=== PATIENT | female | born 1985 | race Caucasian/White ===

== ENCOUNTER 2017-01-27 16:58 | Emergency (ER) | payer SELFPAY ==
[~2017-01-27] VITALS: Ht 172.7 cm; Wt 140.0 kg
[2017-01-27 17:14] VITALS: BP 141/96; PULSE 80; RESP 16; TEMP 99.6; O2SAT 97
[2017-01-27] MEDS ORDERED: CYMB60CA PO (17:59)
[2017-01-27] MEDS ORDERED: LISI10TA3 PO (17:59)
[2017-01-27] MEDS ORDERED: SODIUM CHLOR 0.9% 1000 ML INJ 1,000 ML IV ONE (18:00)
[2017-01-27] MEDS ORDERED: KETOROLAC TROMETHAMINE 30 MG/ML (IVP) VIAL IV PUSH ONE (18:00)
[2017-01-27] MEDS ORDERED: ONDANSETRON HCL 4 MG/2 ML VIAL IV PUSH ONE (18:00)
[2017-01-27] MEDS ORDERED: MORPHINE SULFATE 4 MG/ML INJ IV PUSH ONE ×2 (18:00→19:45)
--- NOTE | 2017-01-27 18:01 | PD ---
HPI Chief Complaint: Abdominal Pain Time Seen by Provider: 17:42 Travel History International Travel<30 days: No Contact w/Intl Traveler<30days: No Traveled to known affect area: No History of Present Illness HPI Patient is a 31-year-old female who comes in complaining of left-sided pelvic pain. She says it's been going on for about the past 4 days, but got much worse today. She says she started her menstrual period on , and she has had cramping, but this is much worse than her normal cramps. She says she feels like something is twisting inside of her. She does say that she had chlamydia almost a year ago, but she was treated. She has not noticed any discharge since then. She has had some nausea, but no vomiting. She has felt feverish, but has not taken her temperature. Been taking ibuprofen for pain without much relief. PFSH Past Medical History Hypertension: Yes Kidney Stones: Yes Tetanus Vaccination: < 5 Years Influenza Vaccination: No ?: Not LMP: NOW Past Surgical History Abdominal Surgery: Yes (Umb. hernia w/ mesh) Genitourinary Surgery: Yes (Lithotripsy, cystoscopy w/ stent (multiple)) Social History Alcohol Use: Yes (Rare) Tobacco Use: Yes (1 PPD) Substance Use: No Allergies-Medications (Allergen,Severity, Reaction): Coded Allergies: Sulfa (Sulfonamide Antibiotics) (Verified Allergy, Intermediate, HIVES, ) Reported Meds & Prescriptions Reported Meds & Active Scripts Active Lortab (Hydrocodone-Acetaminophen) 5-325 Mg Tab 1 Tab PO Q6H PRN Flagyl (Metronidazole) 500 Mg Tab 500 Mg PO TID 7 Days Reported Lisinopril 10 Mg Tab 10 Mg PO DAILY Cymbalta DR (Duloxetine HCl) 60 Mg Capdr 60 Mg PO DAILY Review of Systems Except as stated in HPI: all other systems reviewed are Neg General / Constitutional: No: Fever, Chills HENT: No: Headaches, Lightheadedness Cardiovascular: No: Chest Pain or Discomfort Respiratory: No: Shortness of Breath Gastrointestinal: Positive: Nausea, Abdominal Pain, No: Vomiting Genitourinary: Positive: Vaginal Bleeding, No: Dysuria Musculoskeletal: No: Edema, Pain Skin: No Rash, No Change in Pigmentation Neurologic: No: Weakness, Dizziness Physical Exam Narrative GENERAL: Awake and alert, in no acute distress. SKIN: Focused skin assessment warm/dry. HEAD: Atraumatic. Normocephalic. EYES: Pupils equal and round. No scleral icterus. ENT: No nasal bleeding or discharge. Mucous membranes pink and moist. NECK: Trachea midline. No JVD. CARDIOVASCULAR: Regular rate and rhythm. No murmur appreciated. RESPIRATORY: No accessory muscle use. Clear to auscultation. Breath sounds equal bilaterally. GASTROINTESTINAL: Abdomen soft, nondistended. Tender to palpation in the left pelvic area. No rebound or guarding. : Exam performed in the presence of a female nurse. Greyish discharge from the os. No cervical lesions, no CMT. MUSCULOSKELETAL: No obvious deformities. No clubbing. No cyanosis. No edema. NEUROLOGICAL: Awake and alert. No obvious cranial nerve deficits. Motor grossly within normal limits. Normal speech. PSYCHIATRIC: Appropriate mood and affect; insight and judgment normal. Data Data Last Documented VS Vital Signs Date Time Temp Pulse Resp B/P (MAP) Pulse Ox O2 Delivery O2 Flow Rate FiO2 01/27/17 21:48 84 16 138/70 (92) 99 01/27/17 19:49 Room Air 01/27/17 17:14 99.6 Orders Orders Iv Access Insert/Monitor (01/27/17 17:48) Complete Blood Count With Diff (01/27/17 17:48) Comprehensive Metabolic Panel (01/27/17 17:48) Urinalysis - C+S If Indicated (01/27/17 17:48) Ed Urine Pregnancytest Poc (01/27/17 17:48) Sodium Chlor 0.9% 1000 Ml Inj (Ns 1000 M (01/27/17 18:00) Morphine Inj (Morphine Inj) (01/27/17 18:00) Ondansetron Inj (Zofran Inj) (01/27/17 18:00) Ketorolac Inj (Toradol Inj) (01/27/17 18:00) Wet Prep Profile (01/27/17 18:43) Gc And Chlamydia Pcr (01/27/17 18:43) Us Pelvis Comp W Transvaginal (01/27/17 ) Morphine Inj (Morphine Inj) (01/27/17 19:45) Ct Abd/Pel W Iv Contrast(Rout) (01/27/17 ) Iohexol 350 Inj (Omnipaque 350 Inj) (01/27/17 20:57) Labs Laboratory Tests Test 01/27/17 18:00 01/27/17 18:50 White Blood Count 11.7 TH/MM3 Red Blood Count 4.69 MIL/MM3 Hemoglobin 13.0 GM/DL Hematocrit 39.0 % Mean Corpuscular Volume 83.3 FL Mean Corpuscular Hemoglobin 27.8 PG Mean Corpuscular Hemoglobin Concent 33.4 % Red Cell Distribution Width 12.6 % Platelet Count 352 TH/MM3 Mean Platelet Volume 8.5 FL Neutrophils (%) (Auto) 65.4 % Lymphocytes (%) (Auto) 22.0 % Monocytes (%) (Auto) 5.5 % Eosinophils (%) (Auto) 3.6 % Basophils (%) (Auto) 3.5 % Neutrophils # (Auto) 7.7 TH/MM3 Lymphocytes # (Auto) 2.6 TH/MM3 Monocytes # (Auto) 0.6 TH/MM3 Eosinophils # (Auto) 0.4 TH/MM3 Basophils # (Auto) 0.4 TH/MM3 CBC Comment DIFF FINAL Differential Comment Urine Collection Type CLEAN CATCH Urine Color YELLOW Urine Turbidity CLOUDY Urine pH 7.0 Urine Specific [place] 1.019 Urine Protein NEG mg/dL Urine Glucose (UA) NEG mg/dL Urine Ketones NEG mg/dL Urine Occult Blood NEG Urine Nitrite NEG Urine Bilirubin NEG Urine Leukocyte Esterase NEG Urine WBC 0-2 /hpf Urine Squamous Epithelial Cells 0-2 /hpf Urine Amorphous Sediment MOD Microscopic Urinalysis Comment CULT NOT INDICATED Blood Urea Nitrogen 13 MG/DL Creatinine 1.10 MG/DL Random Glucose 85 MG/DL Total Protein 7.4 GM/DL Albumin 3.7 GM/DL Calcium Level 8.8 MG/DL Alkaline Phosphatase 93 U/L Aspartate Amino Transf (AST/SGOT) 14 U/L Alanine Aminotransferase (ALT/SGPT) 27 U/L Total Bilirubin 0.4 MG/DL Sodium Level 140 MEQ/L Potassium Level 3.8 MEQ/L Chloride Level 108 MEQ/L Carbon Dioxide Level 26.3 MEQ/L Anion Gap 6 MEQ/L Estimat Glomerular Filtration Rate 58 ML/MIN Clue Cells (Wet Prep) PRESENT Vaginal Trichomonas (Wet Prep) NONE SEEN Vaginal Yeast (Wet Prep) NONE SEEN MDM Medical Decision Making Medical Screen Exam Complete: Yes Emergency Medical Condition: Yes Medical Record Reviewed: Yes Differential Diagnosis BV versus GC and chlamydia versus ovarian cyst versus ovarian torsion versus colitis Narrative Course Patient is a 31-year-old female comes in complaining of left-sided abdominal pain. Exam shows tenderness of left pelvic area. IV established, labs sent. Labs show no acute abnormalities. Wet prep positive for clue cells suggesting bacterial vaginosis. Ultrasound of the pelvis shows trace free fluid, no other abnormalities. CT of the abdomen and pelvis shows no acute abnormalities or reasons for the pain. She was given IV fluids, Zofran and morphine. Given a second dose of morphine after the ultrasound. She is feeling better. She'll be discharged with a prescription for Flagyl as well as pain medication. She is advised follow-up with [facility]. Advised to return as needed for any worsening symptoms. She is advised to avoid alcohol taking the antibiotic. Diagnosis Primary Impression: Abdominal pain Qualified Codes: R10.32 - Left lower quadrant pain Additional Impression: Bacterial vaginosis Patient Instructions: Abdominal Pain (ED), Bacterial Vaginosis (ED), General Instructions Additional Instructions: Follow-up with gynecology. Take all of your antibiotic. He can take ibuprofen for pain. Take a pain pill as needed for severe pain. Return to the ED as needed for any worsening symptoms. Scripts Hydrocodone-Acetaminophen (Lortab) 5-325 Mg Tab 1 TAB PO Q6H Y for PAIN, #6 TAB 0 Refills Prov: Manuela Cassidy MD 01/27/17 Metronidazole (Flagyl) 500 Mg Tab 500 MG PO TID for Infection for 7 Days, TAB 0 Refills Prov: Manuela Cassidy MD 01/27/17 Disposition: 01 DISCHARGE HOME Condition: Stable Manuela Cassidy MD Jan 27, 2017 18:01
[2017-01-27 18:15] LABS: AUTOMATED NEUTROPHIL # 7.7 TH/MM3 (1.8-7.7); BASOPHIL # 0.4 TH/MM3 (0-0.2); BASOPHIL % 3.5 % (0.0-2.0); EOSINOPHIL # 0.4 TH/MM3 (0-0.4); EOSINOPHIL % 3.6 % (0.0-4.0); HEMO FLAGS DIFF FINAL; LYMPHOCYTE # 2.6 TH/MM3 (1.0-4.8); MEAN CELL VOLUME 83.3 FL (80.0-100.0); MEAN CORPUSCULAR HEMOGLOBIN 27.8 PG (27.0-34.0); MEAN CORPUSCULAR HGB CONC 33.4 % (32.0-36.0); MONO % 5.5 % (0.0-8.0); NEUT % 65.4 % (16.0-70.0); PLATELET COUNT 352 TH/MM3 (150-450); RED BLOOD COUNT 4.69 MIL/MM3 (4.00-5.30); RED CELL DISTRIBUTION WIDTH 12.6 % (11.6-17.2); WHITE BLOOD COUNT 11.7 TH/MM3 (4.0-11.0)
[2017-01-27 18:18] LABS: BLOOD, URINE NEG (NEG); GLUCOSE,URINE NEG (NEG); KETONE, URINE NEG (NEG); NITRITE,URINE NEG (NEG)
[2017-01-27 18:26] LABS: CHLORIDE 108 MEQ/L (98-107); POTASSIUM 3.8 MEQ/L (3.5-5.1); SODIUM (NA) 140 MEQ/L (136-145)
[2017-01-27 18:30] LABS: ANION GAP 6 MEQ/L (5-15); BICARBONATE 26.3 MEQ/L (21.0-32.0); BLOOD UREA NITROGEN 13 MG/DL (7-18)
[2017-01-27 18:33] LABS: ALT (GPT) 27 U/L (10-53); AST (GOT) 14 U/L (15-37); GLOMERULAR FILTRATION RATE 58 ML/MIN (>89)
[2017-01-27 18:35] LABS: TOTAL BILIRUBIN ADULT 0.4 MG/DL (0.2-1.0)
[2017-01-27 18:36] LABS: ALKALINE PHOSPHATASE 93 U/L (45-117); METHOD OF COLLECTION CLEAN CATCH
[2017-01-27 18:37] LABS: COMMENT (UR) CULT NOT INDICATED; CULTURE IF INDICATED CULT NOT INDICATED; SQUAMOUS EPITHELIAL CELL URINE 0-2 /hpf (0-5); URINE COLOR YELLOW (YELLW/STRAW); WBC, URINE 0-2 /hpf (0-5)
[2017-01-27 19:49] VITALS: BP 133/69; PULSE 78; RESP 18; O2SAT 99
--- NOTE | 2017-01-27 20:15 | RADRPT ---
EXAM DATE/TIME: 01/27/2017 19:00 [facility] COMPARISON: No previous studies available for comparison. INDICATIONS : Pelvic pain. MEDICAL HISTORY : Hypertension. Kidney stones. SURGICAL HISTORY : Umbilical hernia with mesh. Lithotripsy. Cystoscopy with stent. ENCOUNTER: Initial ACUITY: 3 days PAIN SCORE: 6/10 LOCATION: Bilateral pelvis MEASUREMENTS: UTERUS: 7.1 x 3.9 x 3.6 cm ENDOMETRIAL STRIPE: 4 mm RIGHT OVARY: 2.3 x 1.5 x 1.2 cm LEFT OVARY: 3.3 x 1.8 x 2.2 cm FINDINGS: UTERUS: The myometrium has homogeneous echotexture without mass. There is a mildly complex nabothian cyst. RIGHT OVARY: Ovary contains no mass or significant cystic lesion. Follicles are present. LEFT OVARY: Ovary contains no mass or significant cystic lesion. Follicles are present. MISCELLANEOUS: There is trace simple free fluid in the posterior cul-de-sac. CONCLUSION: 1. Normal pelvis ultrasound. No abnormality is identified to explain the pain. 2. Trace simple free fluid in the posterior cul-de-sac consistent with physiologic free fluid. Royce Melendez MD on January 27, 2017 at 20:11 Board Certified Radiologist. This report was verified electronically.
[2017-01-27] MEDS ORDERED: IOHEXOL 350 MG/ML 10 ML VIAL (for RAD DIAG) IV PUSH ONE (20:57)
--- NOTE | 2017-01-27 21:20 | RADRPT ---
EXAM DATE/TIME: 01/27/2017 20:46 [facility] COMPARISON: No previous studies available for comparison. INDICATIONS : Left pelvic pain for four days. IV CONTRAST: 75 cc Omnipaque 350 (iohexol) IV ORAL CONTRAST: No oral contrast ingested. RADIATION DOSE: 22.38 CTDIvol (mGy) MEDICAL HISTORY : Hypertension. SURGICAL HISTORY : Umbilical hernia repair. ENCOUNTER: Initial ACUITY: 4 - 6 days PAIN SCALE: 5/10 LOCATION: Left lower quadrant TECHNIQUE: Volumetric scanning of the abdomen and pelvis was performed. Using automated exposure control and ad justment of the mA and/or kV according to patient size, radiation dose was kept as low as reasonably achievable to obtain optimal diagnostic quality images. DICOM format image data is available electro nically for review and comparison. FINDINGS: LOWER LUNGS: The visualized lower lungs are clear. LIVER: Liver density is suggestive of steatosis. The liver measures 24.2 cm in length. There has been prior cholecystectomy with clips in the gallbladder fossa. There is no dilation of the biliary tree. SPLEEN: Measures 13.6 cm. No focal lesion. PANCREAS: Within normal limits. KIDNEYS: Normal in size and shape. There is no mass, stone or hydronephrosis. ADRENAL GLANDS: Within normal limits. VASCULAR: There is no aortic aneurysm. BOWEL/MESENTERY: The stomach, small bowel, and colon demonstrate no acute abnormality. There is no free intraperitone al air. There is trace free fluid in the posterior cul-de-sac. The appendix is normal. ABDOMINAL WALL: Within normal limits. RETROPERITONEUM: There is no lymphadenopathy. BLADDER: No wall thickening or mass. REPRODUCTIVE: Within normal limits. INGUINAL: There is no lymphadenopathy or hernia. MUSCULOSKELETAL: No acute abnormality. CONCLUSION: 1. No acute finding is identified to explain the clinical symptoms. 2. Trace free fluid in the posterior cul-de-sac, presumably physiologic. 3. Hepatomegaly with steatosis. Royce Melendez MD on January 27, 2017 at 21:15 Board Certified Radiologist. This report was verified electronically.
[2017-01-27] MEDS ORDERED: METR-1 PO (21:34)
[2017-01-27] MEDS ORDERED: HYDR-3533 PO (21:34)
[2017-01-27 21:48] VITALS: BP 138/70
[2017-01-27 22:59] LABS: CHLAMYDIA PCR NOT DETECTED (NOT DETECT); NEISSERIA PCR NOT DETECTED (NOT DETECT)
== END 2017-01-27 21:53 | disposition home or self-care (01) ==
LOC: PHED 16:58
DX: N76.0 Acute vaginitis (principal); R11.0 Nausea; I10 Essential (primary) hypertension; F17.200 Nicotine dependence, unspecified, uncomplicated
CPT/HCPCS: 74177; 76830; 76856; 80053; 81001; 84703; 85025; 87210; 87491; 87591; 96361; 96374; 96375; 96376; 99285; J1885; J2270; J2405; J7030; Q9967

== ENCOUNTER 2017-04-22 01:58 | Emergency (ER) | payer SELFPAY ==
[~2017-04-22] VITALS: Ht 172.7 cm; Wt 142.8 kg
[~2017-04-22 01:58] MED LIST: CYMB60CA PO; HYDR-3533 PO; LISI10TA3 PO; METR-1 PO
[2017-04-22 02:03] VITALS: BP 152/95; PULSE 94; RESP 22; TEMP 98.4; O2SAT 100
[2017-04-22] MEDS ORDERED: IBUP200C PO (02:33)
[2017-04-22 02:55] LABS: BLOOD, URINE NEG (NEG); GLUCOSE,URINE NEG (NEG); KETONE, URINE TRACE mg/dL (NEG); NITRITE,URINE NEG (NEG)
[2017-04-22 03:17] LABS: URINE COLOR YELLOW (YELLW/STRAW)
[2017-04-22 03:18] LABS: MUCUS URINE MOD /lpf (OCC)
[2017-04-22 03:19] LABS: BACTERIA, URINE MOD /hpf; CALCIUM OXALATE CRYSTALS,URINE FEW /hpf; RBC, URINE 0-3 /hpf (0-3)
[2017-04-22 03:21] LABS: COMMENT (UR) CULTURE INDICATED; CULTURE IF INDICATED CULTURE INDICATED
[2017-04-22] MEDS ORDERED: LEVOFLOXACIN 750 MG TAB PO ONE (03:45)
[2017-04-22] MEDS ORDERED: KETOROLAC TROMETHAMINE 60 MG/2 ML (IM) VIAL IM ONE (03:45)
--- NOTE | 2017-04-22 03:45 | PD ---
HPI Chief Complaint: Flank/Kidney Pain Time Seen by Provider: 02:24 Travel History International Travel<30 days: No Contact w/Intl Traveler<30days: No Traveled to known affect area: No History of Present Illness HPI Patient with the last 2 days has had bilateral back pain right side is worse than left. There is some radiation around the right lateral abdomen. She's having dysuria and pressure when she urinates as well . Patient reports that she has had a history of stones when I ask her who did the stenting if she had to have stenting she said it was done at [facility] not here locally. Patient has allergies to sulfa cannot take Bactrim she has had UTIs in the past which she reports often involved her kidneys as well. UA is sent will evaluate urine for red cells patient does not appear toxic awake alert oriented 3 PFSH Past Medical History Anxiety: Yes Depression: Yes Hypertension: Yes Kidney Stones: Yes Medical other: Yes (DONIS'S PALSY: 2013) Musculoskeletal: Yes (LOW BACK PAIN) Tetanus Vaccination: < 5 Years ?: Unknown LMP: THREE WEEKS AGO : 0 Ovarian Cysts: Yes Past Surgical History Abdominal Surgery: Yes (Umb. hernia w/ mesh) Cholecystectomy: Yes (2014) Genitourinary Surgery: Yes (Lithotripsy, cystoscopy w/ stent (multiple)) Tonsillectomy: Yes (WITH ADENOIDS) Other Surgery: Yes (LEFT HAND 5TH DIGIT RECONSTRUCTION) Social History Alcohol Use: Yes (Rare) Tobacco Use: Yes (1 PPD) Substance Use: No Allergies-Medications (Allergen,Severity, Reaction): Coded Allergies: Sulfa (Sulfonamide Antibiotics) (Verified Allergy, Intermediate, HIVES, ) Reported Meds & Prescriptions Reported Meds & Active Scripts Active Ibuprofen 600 Mg Tab 600 Mg PO Q6H PRN Levaquin (Levofloxacin) 750 Mg Tablet 750 Mg PO DAILY Reported Ibuprofen 200 Mg Cap 600 Mg PO ONCE Lisinopril 10 Mg Tab 10 Mg PO DAILY Cymbalta DR (Duloxetine HCl) 60 Mg Capdr 60 Mg PO DAILY Physical Exam Narrative GENERAL: obese non toxic appearing no acute distress SKIN: Warm and dry. HEAD: Atraumatic. Normocephalic. EYES: Pupils equal and round. No scleral icterus. No injection or drainage. ENT: No nasal bleeding or discharge. Mucous membranes pink and moist. NECK: Trachea midline. No JVD. CARDIOVASCULAR: Regular rate and rhythm. RESPIRATORY: No accessory muscle use. Clear to auscultation. Breath sounds equal bilaterally. GASTROINTESTINAL: Abdomen soft, non-tender, nondistended. Hepatic and splenic margins not palpable. MUSCULOSKELETAL: Extremities without clubbing, cyanosis, or edema. No obvious deformities. FLANK PAIN bilateral NEUROLOGICAL: Awake and alert. No obvious cranial nerve deficits. Motor grossly within normal limits. Five out of 5 muscle strength in the arms and legs. Normal speech. PSYCHIATRIC: Appropriate mood and affect; insight and judgment normal. Data Data Last Documented VS Vital Signs Date Time Temp Pulse Resp B/P (MAP) Pulse Ox O2 Delivery O2 Flow Rate FiO2 04/22/17 06:24 04/22/17 06:24 98.3 82 16 98 04/22/17 04:28 Room Air Orders Orders Urinalysis - C+S If Indicated (04/22/17 02:43) Urine Culture (04/22/17 02:40) Ketorolac Inj (Toradol Inj) (04/22/17 03:45) Levofloxacin (Levaquin) (04/22/17 03:45) Ct Abd/Pel W/O Iv Contrast (04/22/17 ) Ed Urine Pregnancytest Poc (04/22/17 04:13) Tramadol (Ultram) (04/22/17 04:15) Ondansetron Odt (Zofran Odt) (04/22/17 04:45) Ed Discharge Order (04/22/17 06:26) Labs Laboratory Tests Test 04/22/17 02:40 Urine Color YELLOW Urine Turbidity SLIGHT Urine pH 6.0 Urine Specific [place] 1.031 Urine Protein NEG mg/dL Urine Glucose (UA) NEG mg/dL Urine Ketones TRACE mg/dL Urine Occult Blood NEG Urine Nitrite NEG Urine Bilirubin NEG Urine Leukocyte Esterase SMALL Urine RBC 0-3 /hpf Urine WBC 3-5 /hpf Urine Squamous Epithelial Cells 6-8 /hpf Urine Calcium Oxalate Crystals FEW /hpf Urine Bacteria MOD /hpf Urine Hyaline Casts 3-5 /lpf Urine Mucus MOD /lpf Microscopic Urinalysis Comment CULTURE INDICATED MDM Medical Decision Making Medical Screen Exam Complete: Yes Emergency Medical Condition: Yes Differential Diagnosis back pain vs flank pain renal colic vs myalgias NOS Narrative Course CT = no ureters stones no acute pathology . Diagnosis Primary Impression: UTI (urinary tract infection) Qualified Codes: N30.00 - Acute cystitis without hematuria Patient Instructions: General Instructions, Urinary Tract Infection in Women ( ED) Scripts Ibuprofen (Ibuprofen) 600 Mg Tab 600 MG PO Q6H Y for Pain/Inflammation, #30 TAB 0 Refills Prov: Bernabe Mitchell MD 04/22/17 Levofloxacin (Levaquin) 750 Mg Tablet 750 MG PO DAILY for Infection, #5 TAB 0 Refills Prov: Bernabe Mitchell MD 04/22/17 Disposition: 01 DISCHARGE HOME Condition: Good Bernabe Mitchell MD Apr 22, 2017 03:45
[2017-04-22] MEDS ORDERED: traMADol HCL 50 MG TAB PO ONE (04:15)
[2017-04-22 04:28] VITALS: BP 102/72; PULSE 69; RESP 16; O2SAT 98
[2017-04-22] MEDS ORDERED: ONDANSETRON ODT 4 MG TAB PO ONE (04:45)
--- NOTE | 2017-04-22 05:34 | RADRPT ---
EXAM DATE/TIME: 04/22/2017 04:59 [facility] COMPARISON: CT ABDOMEN & PELVIS W CONTRAST, January 27, 2017, 20:46. INDICATIONS : Lower abdominal pain. ORAL CONTRAST: No oral contrast ingested. RADIATION DOSE: 22.38 CTDIvol (mGy) MEDICAL HISTORY : Hypertension. SURGICAL HISTORY : Umbilical hernia repair. Cholecystectomy. ENCOUNTER: Initial ACUITY: 2 days PAIN SCALE: 8/10 LOCATION: Bilateral lower quadrant TECHNIQUE: Volumetric scanning of the abdomen and pelvis was performed. Using automated exposure control and ad justment of the mA and/or kV according to patient size, radiation dose was kept as low as reasonably achievable to obtain optimal diagnostic quality images. DICOM format image data is available electro nically for review and comparison. FINDINGS: LOWER LUNGS: The visualized lower lungs are clear. LIVER: Homogeneous density without lesion. There is no dilation of the biliary tree. Cholecystectomy clips. SPLEEN: Normal size without lesion. PANCREAS: Within normal limits. KIDNEYS: Normal in size and shape. There is no mass, or hydronephrosis. Multiple small calcifications without evidence of obstruction ADRENAL GLANDS: Within normal limits. VASCULAR: There is no aortic aneurysm. BOWEL/MESENTERY: The stomach, small bowel, and colon demonstrate no acute abnormality. There is no free intraperitone al air or fluid. ABDOMINAL WALL: Within normal limits. RETROPERITONEUM: There is no lymphadenopathy. BLADDER: No wall thickening or mass. REPRODUCTIVE: Within normal limits. INGUINAL: There is no lymphadenopathy or hernia. MUSCULOSKELETAL: Within normal limits for patient age. CONCLUSION: Normal examination. No etiology for abdominal pain is identified. Ranjit Sanchez MD on April 22, 2017 at 5:31 Board Certified Radiologist. This report was verified electronically.
[2017-04-22] MEDS ORDERED: LEVA750T9 PO (06:20)
[2017-04-22] MEDS ORDERED: IBUP-232 PO (06:22)
[2017-04-22 06:24] VITALS: BP 116/62; PULSE 82; RESP 16; TEMP 98.3; O2SAT 98
== END 2017-04-22 06:36 | disposition home or self-care (01) ==
LOC: PHED 01:58
DX: N30.00 Acute cystitis without hematuria (principal); B96.89 Other specified bacterial agents as the cause of diseases classified elsewhere; F17.200 Nicotine dependence, unspecified, uncomplicated; I10 Essential (primary) hypertension
CPT/HCPCS: 74176; 81001; 84703; 87086; 96372; 99285; J1885

== ENCOUNTER 2017-11-26 20:58 | Emergency (ER) | payer SELFPAY ==
[~2017-11-26 20:58] MED LIST changes: -HYDR-3533 PO; +IBUP-232 PO; +IBUP200C PO; +LEVA750T9 PO; -METR-1 PO
[2017-11-26 21:05] VITALS: BP 133/73; PULSE 97; RESP 20; TEMP 98.9; O2SAT 100
[2017-11-26] MEDS ORDERED: ONDANSETRON ODT 4 MG TAB PO ONE (21:30)
[2017-11-26] MEDS ORDERED: KETOROLAC TROMETHAMINE 30 MG/ML (IVP) VIAL IVP ONE (21:30)
--- NOTE | 2017-11-26 21:33 | PD ---
HPI Chief Complaint: Abdominal Pain Time Seen by Provider: 21:17 Travel History International Travel<30 days: No Contact w/Intl Traveler<30days: No Traveled to known affect area: No History of Present Illness HPI 32yo F with c/o left sided back pain radiating to left abdomen since yesterday. Said it feels like her kidney stone but she is also having nonbloody diarrhea. +Nausea. Abdominal pain is constant but waxes and wanes in intensity. No exacerbating or alleviating factors. Moderate severity. No dysuria but increased urinary frequency. PSH include cholecystectomy and umbilical hernia repair. PFSH Past Medical History Anxiety: Yes Depression: Yes Hypertension: Yes Kidney Stones: Yes Musculoskeletal: Yes (LOW BACK PAIN) ?: Not LMP: 2 WEEKS : 0 Ovarian Cysts: Yes Past Surgical History Abdominal Surgery: Yes (Umb. hernia w/ mesh) Cholecystectomy: Yes (2014) Genitourinary Surgery: Yes (Lithotripsy, cystoscopy w/ stent (multiple)) Tonsillectomy: Yes (WITH ADENOIDS) Other Surgery: Yes (LEFT HAND 5TH DIGIT RECONSTRUCTION) Social History Alcohol Use: Yes (Rare) Tobacco Use: Yes (1 PPD) Substance Use: No Allergies-Medications (Allergen,Severity, Reaction): Coded Allergies: Sulfa (Sulfonamide Antibiotics) (Verified Allergy, Intermediate, HIVES, ) Reported Meds & Prescriptions Reported Meds & Active Scripts Active Reported Lisinopril 10 Mg Tab 10 Mg PO DAILY Cymbalta DR (Duloxetine HCl) 60 Mg Capdr 60 Mg PO DAILY Review of Systems Except as stated in HPI: all other systems reviewed are Neg Physical Exam Narrative GENERAL: 32yo F in mild distress. SKIN: Focused skin assessment warm/dry. HEAD: Atraumatic. Normocephalic. EYES: Pupils equal and round. No scleral icterus. No injection or drainage. ENT: No nasal bleeding or discharge. Mucous membranes pink and moist. NECK: Trachea midline. No JVD. CARDIOVASCULAR: Regular rate and rhythm. No murmur appreciated. RESPIRATORY: No accessory muscle use. Clear to auscultation. Breath sounds equal bilaterally. GASTROINTESTINAL: Abdomen soft, obese abdomen. +TTP Left upper and left lower abdomen. No RLQ ttp. No rebound tenderness or guarding. BACK: No midline thoracic or lumbar ttp. +CVA tenderness on left. MUSCULOSKELETAL: No obvious deformities. No clubbing. No cyanosis. No edema. NEUROLOGICAL: Awake and alert. No obvious cranial nerve deficits. Motor grossly within normal limits. Normal speech. PSYCHIATRIC: Appropriate mood and affect; insight and judgment normal. Data Data Last Documented VS Vital Signs Date Time Temp Pulse Resp B/P (MAP) Pulse Ox O2 Delivery O2 Flow Rate FiO2 11/26/17 22:30 18 11/26/17 22:03 82 159/85 (109) 98 Room Air 11/26/17 21:05 98.9 Orders Orders Basic Metabolic Panel (Bmp) (11/26/17 21:27) Complete Blood Count With Diff (11/26/17 21:27) Lipase (11/26/17 21:27) Urinalysis - C+S If Indicated (11/26/17 21:27) Ketorolac Inj (Toradol Inj) (11/26/17 21:30) Ed Urine Pregnancytest Poc (11/26/17 21:27) Ondansetron Odt (Zofran Odt) (11/26/17 21:30) Urine Culture (11/26/17 21:35) Morphine Inj (Morphine Inj) (11/26/17 22:30) Ct Abd/Pel W/O Iv Contrast (11/26/17 ) Ceftriaxone Inj (Rocephin Inj) (11/26/17 22:30) Labs Laboratory Tests Test 11/26/17 21:35 White Blood Count 11.7 TH/MM3 Red Blood Count 4.69 MIL/MM3 Hemoglobin 13.5 GM/DL Hematocrit 40.2 % Mean Corpuscular Volume 85.7 FL Mean Corpuscular Hemoglobin 28.8 PG Mean Corpuscular Hemoglobin Concent 33.5 % Red Cell Distribution Width 12.8 % Platelet Count 327 TH/MM3 Mean Platelet Volume 8.7 FL Neutrophils (%) (Auto) 67.2 % Lymphocytes (%) (Auto) 23.5 % Monocytes (%) (Auto) 4.8 % Eosinophils (%) (Auto) 3.8 % Basophils (%) (Auto) 0.7 % Neutrophils # (Auto) 7.9 TH/MM3 Lymphocytes # (Auto) 2.7 TH/MM3 Monocytes # (Auto) 0.6 TH/MM3 Eosinophils # (Auto) 0.4 TH/MM3 Basophils # (Auto) 0.1 TH/MM3 CBC Comment DIFF FINAL Differential Comment Urine Color YELLOW Urine Turbidity SL CLOUDY Urine pH 6.0 Urine Specific [place] 1.020 Urine Protein NEG mg/dL Urine Glucose (UA) NEG mg/dL Urine Ketones NEG mg/dL Urine Occult Blood SMALL Urine Nitrite NEG Urine Bilirubin NEG Urine Urobilinogen 0.2 MG/DL Urine Leukocyte Esterase NEG Urine RBC 10-14 /hpf Urine WBC 3-5 /hpf Urine Squamous Epithelial Cells 6-8 /hpf Urine Bacteria MOD /hpf Microscopic Urinalysis Comment CULTURE INDICATED Blood Urea Nitrogen 14 MG/DL Creatinine 0.96 MG/DL Random Glucose 86 MG/DL Calcium Level 8.6 MG/DL Sodium Level 139 MEQ/L Potassium Level 4.1 MEQ/L Chloride Level 108 MEQ/L Carbon Dioxide Level 24.7 MEQ/L Anion Gap 6 MEQ/L Estimat Glomerular Filtration Rate 67 ML/MIN Lipase 203 U/L MDM Medical Decision Making Medical Screen Exam Complete: Yes Emergency Medical Condition: Yes Differential Diagnosis Nephrolithiasis vs. pyelonephritis vs. colitis Narrative Course 32yo F with PMH of nephrolithiasis here with left back pain radiating to left abdomen. Said it feels like her kidney stone. Labs reviewed, WBC 11.7. H/H normal. Creatinine normal. Lipase normal. UA showed 10-14 RBC. Moderate bacteria. There is 6-8 squamous cells. Culture is indicated. This may be contamination but pt is symptomatic so will treat with antibiotics. Pt given ceftriaxone. Pt initially given zofran and toradol but still in a lot of pain. So morphine ordered and CT a/p ordered. CT a/p showed 3mm left UPJ stone without hydronephrosis. Bilateral small calculi. Pt reevaluated at bedside and pain has improved. Nausea has resolved as well and she is tolerating PO. Return precautions given. Diagnosis Primary Impression: Nephrolithiasis Referrals: Caleb Patino MD call for appointment Patient Instructions: General Instructions Departure Forms: Tests/Procedures Additional Instructions: Please follow up with urology as needed. Return to the ED if symptoms worsen. Med/Other Pt SpecificInfo: Prescription(s) given Scripts Cephalexin (Cephalexin) 500 Mg Cap 500 MG PO Q12H for Infection for 7 Days, #14 CAP 0 Refills Prov: Madina Short DO 11/26/17 Tamsulosin (Flomax) 0.4 Mg Cap 0.4 MG PO HS for Manage Prostate Problems, #10 CAP 0 Refills Prov: Madina Short DO 11/26/17 Hydrocodone-Acetaminophen (Hydrocodone-Acetaminophen) 5-325 mg Tab 1 TAB PO Q6H Y for PAIN, #7 TAB 0 Refills Prov: Madina Short DO 11/26/17 Disposition: 01 DISCHARGE HOME Condition: Stable Madina Short DO Nov 26, 2017 21:33
[2017-11-26 22:03] VITALS: BP 159/85; PULSE 82; RESP 18; O2SAT 98
[2017-11-26 22:04] LABS: BILIRUBIN, URINE NEG (NEG); BLOOD, URINE SMALL (NEG); GLUCOSE,URINE NEG (NEG); KETONE, URINE NEG (NEG); NITRITE,URINE NEG (NEG); URINE COLOR YELLOW (YELLW/STRAW); URINE LEUKOCYTE ESTERASE NEG (NEG)
[2017-11-26 22:05] LABS: AUTOMATED NEUTROPHIL # 7.9 TH/MM3 (1.8-7.7); BASOPHIL # 0.1 TH/MM3 (0-0.2); BASOPHIL % 0.7 % (0.0-2.0); EOSINOPHIL # 0.4 TH/MM3 (0-0.4); EOSINOPHIL % 3.8 % (0.0-4.0); HEMATOCRIT 40.2 % (35.0-46.0); HEMOGLOBIN 13.5 GM/DL (11.6-15.3); LYMPH % 23.5 % (9.0-44.0); LYMPHOCYTE # 2.7 TH/MM3 (1.0-4.8); MEAN CELL VOLUME 85.7 FL (80.0-100.0); MEAN CORPUSCULAR HEMOGLOBIN 28.8 PG (27.0-34.0); MEAN CORPUSCULAR HGB CONC 33.5 % (32.0-36.0); MEAN PLATELET VOLUME 8.7 FL (7.0-11.0); MONO % 4.8 % (0.0-8.0); MONOCYTE # 0.6 TH/MM3 (0-0.9); NEUT % 67.2 % (16.0-70.0); PLATELET COUNT 327 TH/MM3 (150-450); RED BLOOD COUNT 4.69 MIL/MM3 (4.00-5.30); RED CELL DISTRIBUTION WIDTH 12.8 % (11.6-17.2); WHITE BLOOD COUNT 11.7 TH/MM3 (4.0-11.0)
[2017-11-26 22:11] LABS: BACTERIA, URINE MOD /hpf
[2017-11-26 22:15] LABS: BICARBONATE 24.7 MEQ/L (21.0-32.0); CALCIUM 8.6 MG/DL (8.5-10.1)
[2017-11-26 22:19] LABS: CREATININE 0.96 MG/DL (0.50-1.00)
[2017-11-26] MEDS ORDERED: MORPHINE SULFATE 4 MG/ML INJ IV PUSH ONE ×2 (22:30→23:15)
[2017-11-26] MEDS ORDERED: cefTRIAXone INJ 1,000 MG in SODIUM CHLORIDE 0.9% INJ 100 ML IV ONE (22:30)
--- NOTE | 2017-11-26 22:47 | RADRPT ---
EXAM DATE: 11/26/2017 10:41 PM EDT AGE/SEX: 32 years / Female INDICATIONS: Left flank pain. CLINICAL DATA: This is the patient's initial encounter. Patient reports that signs and symptoms have been present for 1 day and indicates a pain score of 7/10. MEDICAL/SURGICAL HISTORY: Hypertension. Renal calculi. Ovarian cysts. Umbilical hernia repai r. RADIATION DOSE: 27.83 CTDI (mGy) ; Patient body habitus COMPARISON: CT abdomen and pelvis 04/22/2017. TECHNIQUE: Multiple contiguous axial images were obtained through the abdomen. Images were obtained using multiple row detector helical technique. Using automated exposure control and adjustment of the mA and/or kV according to patient size, radiation dose was kept as low as reasonably achievable to o btain optimal diagnostic quality images. DICOM format image data is available electronically for rev iew and comparison. FINDINGS: Lower Lungs: The visualized lower lungs are clear. Liver: The liver has a homogeneous density without space-occupying lesion. There is no dilation of th e biliary tree. Gallbladder surgically absent. Spleen: Homogeneous density without enlargement. Pancreas: Unremarkable without mass or calcification. Kidneys: Normal in size and shape. Bilateral renal calculi observed. These measure between 1 and 3 m m. A 3 mm stone is seen at the left UPJ. No significant hydronephrosis. No hydroureter.. Adrenal Glands: Unremarkable. Aorta: The aorta and proximal iliac vessels are grossly unremarkable without aneurysmal dilation. Bowel/Mesentery: The bowel loops are grossly unremarkable. The cecum and sigmoid colon have a normal configuration. Abdominal Wall: Intact. Retroperitoneum: No evidence of adenopathy in the retrocrural, para-aortic, or deep pelvic regions. Bladder: Contours are smooth. Reproductive Organs: No abnormal masses or calcifications seen. Inguinal: The inguinal region is unremarkable without evidence of adenopathy. Bony Structures: Unremarkable. CONCLUSION: 1. 3 mm left UPJ stone without hydronephrosis. 2. Bilateral small renal calculi. Electronically signed by: Lino Peres MD 11/26/2017 10:45 PM EDT
[2017-11-26 23:00] VITALS: BP 138/80; PULSE 68; RESP 18; O2SAT 96
[2017-11-26] MEDS ORDERED: TAMS5CAP PO (23:12)
[2017-11-26] MEDS ORDERED: HYDR-3516 PO (23:12)
[2017-11-26] MEDS ORDERED: CEPH500C PO (23:12)
[2017-11-26 23:34] VITALS: RESP 16
[2017-11-26 23:52] VITALS: BP 156/85
== END 2017-11-27 00:18 | disposition home or self-care (01) ==
LOC: PHED 20:58
DX: N20.0 Calculus of kidney (principal); R19.7 Diarrhea, unspecified; R11.0 Nausea; R35.0 Frequency of micturition; I10 Essential (primary) hypertension; F41.8 Other specified anxiety disorders; F17.200 Nicotine dependence, unspecified, uncomplicated; Z87.442 Personal history of urinary calculi; Z87.39 Personal history of other diseases of the musculoskeletal system and connective tissue
CPT/HCPCS: 74176; 80048; 81001; 83690; 84703; 85025; 87086; 96361; 96374; 96375; 96376; 99284; J0696; J1885; J2270

== ENCOUNTER 2017-11-27 13:36 | Emergency (ER) | payer SELFPAY ==
[~2017-11-27] VITALS: Ht 172.7 cm; Wt 147.0 kg
[~2017-11-27 13:36] MED LIST changes: +CEPH500C PO; +HYDR-3516 PO; -IBUP-232 PO; -IBUP200C PO; -LEVA750T9 PO; +TAMS5CAP PO
[2017-11-27 13:42] VITALS: BP 160/103; PULSE 103; RESP 16; TEMP 98.5; O2SAT 98
[2017-11-27] MEDS ORDERED: SODIUM CHLOR 0.9% 1000 ML INJ 1,000 ML IV SCH (14:53)
[2017-11-27] MEDS ORDERED: SODIUM CHLORIDE 0.9% FLUSH 10 ML FLUSH IV FLUSH PRN (15:00)
[2017-11-27 15:04] VITALS: O2SAT 98
[2017-11-27 15:10] VITALS: BP 105/59; PULSE 81; RESP 20; O2SAT 99
[2017-11-27] MEDS ORDERED: ONDANSETRON ODT 4 MG TAB PO ONE (15:15)
[2017-11-27] MEDS ORDERED: KETOROLAC TROMETHAMINE 30 MG/ML (IVP) VIAL IV PUSH ONE ×2 (15:15→16:15)
[2017-11-27 15:18] LABS: AUTOMATED NEUTROPHIL # 6.7 TH/MM3 (1.8-7.7); BASOPHIL # 0.2 TH/MM3 (0-0.2); BASOPHIL % 2.1 % (0.0-2.0); EOSINOPHIL # 0.5 TH/MM3 (0-0.4); EOSINOPHIL % 5.2 % (0.0-4.0); HEMOGLOBIN 12.9 GM/DL (11.6-15.3); LYMPH % 20.3 % (9.0-44.0); LYMPHOCYTE # 2.1 TH/MM3 (1.0-4.8); MEAN CELL VOLUME 84.3 FL (80.0-100.0); MEAN CORPUSCULAR HEMOGLOBIN 27.8 PG (27.0-34.0); MEAN PLATELET VOLUME 8.7 FL (7.0-11.0); MONO % 6.5 % (0.0-8.0); MONOCYTE # 0.7 TH/MM3 (0-0.9); NEUT % 65.9 % (16.0-70.0); PLATELET COUNT 300 TH/MM3 (150-450); RED BLOOD COUNT 4.62 MIL/MM3 (4.00-5.30); RED CELL DISTRIBUTION WIDTH 13.5 % (11.6-17.2); WHITE BLOOD COUNT 10.2 TH/MM3 (4.0-11.0)
--- NOTE | 2017-11-27 15:18 | PD ---
HPI Chief Complaint: Complaint Time Seen by Provider: 14:53 Travel History International Travel<30 days: No Contact w/Intl Traveler<30days: No Traveled to known affect area: No History of Present Illness HPI Patient is a 32-year-old female who returns the emergency room for evaluation of a kidney stones. Patient reports that she has had history of kidney stones in the past requiring cystoscopy with stent placement as well as lithotripsy. Patient reports that her procedures were performed in [place]; she moved to [place] 1 year ago and does not have a urologist here. Patient reports that she was seen in the emergency room last night and was told that she had a 3 mm kidney stone. She was also found to have urinary tract infection and was started on Keflex. Patient did feel better after she was given morphine as well as Toradol, she was instructed to follow-up with Dr. Caleb Patino with urology. Patient reports that this morning, she was not feeling any better, reports that she has been nauseous and has been vomiting. Patient reports that she was unable to keep down any of her medications. Patient reports that pain is more severe on the left, reports that she feels a stone moving and thinks that the stone is more towards her pelvis at this time. Patient with no fever chills, no other complaints. PFSH Past Medical History Anxiety: Yes Depression: Yes Hypertension: Yes Kidney Stones: Yes Musculoskeletal: Yes (LOW BACK PAIN) Tetanus Vaccination: < 5 Years Influenza Vaccination: No ?: Not LMP: 2 WEEKS : 0 Ovarian Cysts: Yes Past Surgical History Abdominal Surgery: Yes (Umb. hernia w/ mesh) Cholecystectomy: Yes (2014) Genitourinary Surgery: Yes (Lithotripsy, cystoscopy w/ stent (multiple)) Tonsillectomy: Yes (WITH ADENOIDS) Other Surgery: Yes (LEFT HAND 5TH DIGIT RECONSTRUCTION) Social History Alcohol Use: Yes (Rare) Tobacco Use: Yes (1 PPD) Substance Use: Yes (Marijuana) Allergies-Medications (Allergen,Severity, Reaction): Coded Allergies: Sulfa (Sulfonamide Antibiotics) (Verified Allergy, Intermediate, HIVES, ) Reported Meds & Prescriptions Reported Meds & Active Scripts Active Cephalexin 500 Mg Cap 500 Mg PO Q12H 7 Days Flomax (Tamsulosin HCl) 0.4 Mg Cap 0.4 Mg PO HS Hydrocodone-Acetaminophen 5-325 mg Tab 1 Tab PO Q6H PRN Reported Lisinopril 10 Mg Tab 10 Mg PO DAILY Cymbalta DR (Duloxetine HCl) 60 Mg Capdr 60 Mg PO DAILY Review of Systems General / Constitutional: No: Fever Eyes: No: Visual changes HENT: No: Headaches Cardiovascular: No: Chest Pain or Discomfort Respiratory: No: Shortness of Breath Gastrointestinal: Positive: Nausea, Vomiting, No: Abdominal Pain Genitourinary: Positive: Flank Pain, No: Dysuria Musculoskeletal: No: Pain Skin: No Rash Neurologic: No: Weakness Psychiatric: No: Depression Endocrine: No: Polydipsia Hematologic/Lymphatic: No: Easy Bruising Physical Exam Narrative GENERAL: Moderate distress SKIN: Focused skin assessment warm/dry. HEAD: Atraumatic. Normocephalic. EYES: Pupils equal and round. No scleral icterus. No injection or drainage. ENT: No nasal bleeding or discharge. Mucous membranes pink and moist. NECK: Trachea midline. No JVD. CARDIOVASCULAR: Regular rate and rhythm. No murmur appreciated. RESPIRATORY: No accessory muscle use. Clear to auscultation. Breath sounds equal bilaterally. GASTROINTESTINAL: Abdomen soft, non-tender, nondistended. Hepatic and splenic margins not palpable. Patient with left-sided flank pain MUSCULOSKELETAL: No obvious deformities. No clubbing. No cyanosis. No edema. NEUROLOGICAL: Awake and alert. No obvious cranial nerve deficits. Motor grossly within normal limits. Normal speech. PSYCHIATRIC: Appropriate mood and affect; insight and judgment normal. Data Data Last Documented VS Vital Signs Date Time Temp Pulse Resp B/P (MAP) Pulse Ox O2 Delivery O2 Flow Rate FiO2 11/27/17 16:15 74 20 117/62 (80) 94 11/27/17 13:42 98.5 Orders Orders Complete Blood Count With Diff (11/27/17 14:53) Comprehensive Metabolic Panel (11/27/17 14:53) Urinalysis - C+S If Indicated (11/27/17 14:53) Iv Access Insert/Monitor (11/27/17 14:53) Ecg Monitoring (11/27/17 14:53) Oximetry (11/27/17 14:53) Sodium Chlor 0.9% 1000 Ml Inj (Ns 1000 M (11/27/17 14:53) Sodium Chloride 0.9% Flush (Ns Flush) (11/27/17 15:00) Ed Urine Pregnancytest Poc (11/27/17 14:53) Ketorolac Inj (Toradol Inj) (11/27/17 15:15) Ondansetron Odt (Zofran Odt) (11/27/17 15:15) Ceftriaxone Inj (Rocephin Inj) (11/27/17 15:30) Morphine Inj (Morphine Inj) (11/27/17 16:15) Ketorolac Inj (Toradol Inj) (11/27/17 16:15) Strain Urine PRN (11/27/17 16:26) Ed Discharge Order (11/27/17 17:12) Labs Laboratory Tests Test 11/27/17 15:00 11/27/17 15:05 Blood Urea Nitrogen 13 MG/DL Creatinine 0.90 MG/DL Random Glucose 93 MG/DL Total Protein 7.0 GM/DL Albumin 3.6 GM/DL Calcium Level 8.3 MG/DL Alkaline Phosphatase 87 U/L Aspartate Amino Transf (AST/SGOT) 16 U/L Alanine Aminotransferase (ALT/SGPT) 37 U/L Total Bilirubin 0.3 MG/DL Sodium Level 140 MEQ/L Potassium Level 4.1 MEQ/L Chloride Level 109 MEQ/L Carbon Dioxide Level 26.9 MEQ/L Anion Gap 4 MEQ/L Estimat Glomerular Filtration Rate 73 ML/MIN White Blood Count 10.2 TH/MM3 Red Blood Count 4.62 MIL/MM3 Hemoglobin 12.9 GM/DL Hematocrit 39.0 % Mean Corpuscular Volume 84.3 FL Mean Corpuscular Hemoglobin 27.8 PG Mean Corpuscular Hemoglobin Concent 33.0 % Red Cell Distribution Width 13.5 % Platelet Count 300 TH/MM3 Mean Platelet Volume 8.7 FL Neutrophils (%) (Auto) 65.9 % Lymphocytes (%) (Auto) 20.3 % Monocytes (%) (Auto) 6.5 % Eosinophils (%) (Auto) 5.2 % Basophils (%) (Auto) 2.1 % Neutrophils # (Auto) 6.7 TH/MM3 Lymphocytes # (Auto) 2.1 TH/MM3 Monocytes # (Auto) 0.7 TH/MM3 Eosinophils # (Auto) 0.5 TH/MM3 Basophils # (Auto) 0.2 TH/MM3 CBC Comment DIFF FINAL Differential Comment Urine Color YELLOW Urine Turbidity CLEAR Urine pH 6.0 Urine Specific [place] 1.025 Urine Protein NEG mg/dL Urine Glucose (UA) NEG mg/dL Urine Ketones NEG mg/dL Urine Occult Blood NEG Urine Nitrite NEG Urine Bilirubin NEG Urine Urobilinogen 0.2 MG/DL Urine Leukocyte Esterase NEG Urine WBC 0-2 /hpf Urine Squamous Epithelial Cells 0-5 /hpf Microscopic Urinalysis Comment CULT NOT INDICATED MDM Medical Decision Making Medical Screen Exam Complete: Yes Emergency Medical Condition: Yes Medical Record Reviewed: Yes Interpretation(s) Vital Signs Date Time Temp Pulse Resp B/P (MAP) Pulse Ox O2 Delivery O2 Flow Rate FiO2 11/27/17 15:10 81 20 105/59 (74) 99 11/27/17 15:04 98 11/27/17 13:42 98.5 103 16 160/103 (122) 98 Differential Diagnosis Kidney stone, UTI, pyelonephritis, intractable pain Narrative Course During the course of the patients emergency department visit, the patients history, examination, and differential diagnosis were reviewed with the patient. The patient was placed on a city route driver with oximetry and frequent blood pressure monitoring. The patient had an IV access obtained and blood work sent for analysis. CT of the abdomen pelvis as well as workup was reviewed from yesterday, patient does have a 3 mm left UPJ stone without hydronephrosis, she has bilateral small renal calculi. The patient was initially provided IV fluids, IV Toradol as well as Zofran. Plan to treat patient's pain at this time to make her comfortable, does appear that patient is passing his kidney stone as she does feel it moving. Her stone is 3 mm in size, I do think that patient will be able to pass the stone with time. The patients laboratory studies were reviewed and remarkable for Laboratory Tests Test 11/27/17 15:00 11/27/17 15:05 Blood Urea Nitrogen 13 MG/DL (7-18) Creatinine 0.90 MG/DL (0.50-1.00) Random Glucose 93 MG/DL (74-106) Total Protein 7.0 GM/DL (6.4-8.2) Albumin 3.6 GM/DL (3.4-5.0) Calcium Level 8.3 MG/DL (8.5-10.1) Alkaline Phosphatase 87 U/L (45-117) Aspartate Amino Transf (AST/SGOT) 16 U/L (15-37) Alanine Aminotransferase (ALT/SGPT) 37 U/L (10-53) Total Bilirubin 0.3 MG/DL (0.2-1.0) Sodium Level 140 MEQ/L (136-145) Potassium Level 4.1 MEQ/L (3.5-5.1) Chloride Level 109 MEQ/L (98-107) Carbon Dioxide Level 26.9 MEQ/L (21.0-32.0) Anion Gap 4 MEQ/L (5-15) Estimat Glomerular Filtration Rate 73 ML/MIN (>89) White Blood Count 10.2 TH/MM3 (4.0-11.0) Red Blood Count 4.62 MIL/MM3 (4.00-5.30) Hemoglobin 12.9 GM/DL (11.6-15.3) Hematocrit 39.0 % (35.0-46.0) Mean Corpuscular Volume 84.3 FL (80.0-100.0) Mean Corpuscular Hemoglobin 27.8 PG (27.0-34.0) Mean Corpuscular Hemoglobin Concent 33.0 % (32.0-36.0) Red Cell Distribution Width 13.5 % (11.6-17.2) Platelet Count 300 TH/MM3 (150-450) Mean Platelet Volume 8.7 FL (7.0-11.0) Neutrophils (%) (Auto) 65.9 % (16.0-70.0) Lymphocytes (%) (Auto) 20.3 % (9.0-44.0) Monocytes (%) (Auto) 6.5 % (0.0-8.0) Eosinophils (%) (Auto) 5.2 % (0.0-4.0) Basophils (%) (Auto) 2.1 % (0.0-2.0) Neutrophils # (Auto) 6.7 TH/MM3 (1.8-7.7) Lymphocytes # (Auto) 2.1 TH/MM3 (1.0-4.8) Monocytes # (Auto) 0.7 TH/MM3 (0-0.9) Eosinophils # (Auto) 0.5 TH/MM3 (0-0.4) Basophils # (Auto) 0.2 TH/MM3 (0-0.2) CBC Comment DIFF FINAL Differential Comment Urine Color YELLOW (YELLW/STRAW) Urine Turbidity CLEAR (CLEAR) Urine pH 6.0 (5.0-8.5) Urine Specific [place] 1.025 (1.002-1.035) Urine Protein NEG mg/dL (NEG-TRACE) Urine Glucose (UA) NEG mg/dL (NEG) Urine Ketones NEG mg/dL (NEG) Urine Occult Blood NEG (NEG) Urine Nitrite NEG (NEG) Urine Bilirubin NEG (NEG) Urine Urobilinogen 0.2 MG/DL (LESS THAN Urine Leukocyte Esterase NEG (NEG) Urine WBC 0-2 /hpf (0-5) Urine Squamous Epithelial Cells 0-5 /hpf (0-5) Microscopic Urinalysis Comment CULT NOT INDICATED cbc: wnl bmp: bun 13, cr 0.90 UA shows negative leuk esterase, negative ketones, negative nitrites, 0-2 white blood cells, 0-5 epithelial cells Patient had a 3 mm stone in the left UPJ yesterday, this stone was most likely passed on its own. Encouraged patient to drink plenty of fluids and to make an appointment with a urologist. She has enough pain medications at home, she will continue her course of antibiotics. Signs and symptoms of when to return to the emergency room was reviewed with the patient in detail. Diagnosis Primary Impression: Kidney stone on left side Patient Instructions: General Instructions, Narcotic given in the ED Departure Forms: Tests/Procedures, Work Release Enter return to work date: Nov 30, 2017 Additional Instructions: Please provide patient with a copy of their lab work and studies at discharge* * Please follow up with your primary care doctor in 2-3 days Return to the ER if symptoms worsen or progress Return to the ER as needed Please follow-up with a urologist as soon as possible, strain your urine Disposition: 01 DISCHARGE HOME Condition: Stable RaffySharda Nov 27, 2017 15:18
[2017-11-27 15:24] LABS: BILIRUBIN, URINE NEG (NEG); BLOOD, URINE NEG (NEG); GLUCOSE,URINE NEG (NEG); KETONE, URINE NEG (NEG); NITRITE,URINE NEG (NEG); URINE COLOR YELLOW (YELLW/STRAW); URINE LEUKOCYTE ESTERASE NEG (NEG)
[2017-11-27 15:28] LABS: CHLORIDE 109 MEQ/L (98-107); SODIUM (NA) 140 MEQ/L (136-145)
[2017-11-27] MEDS ORDERED: cefTRIAXone INJ 1,000 MG in SODIUM CHLORIDE 0.9% INJ 100 ML IV ONE (15:30)
[2017-11-27 15:31] LABS: ALBUMIN 3.6 GM/DL (3.4-5.0); BICARBONATE 26.9 MEQ/L (21.0-32.0); BLOOD UREA NITROGEN 13 MG/DL (7-18); CALCIUM 8.3 MG/DL (8.5-10.1); GLUCOSE,RANDOM 93 MG/DL (74-106)
[2017-11-27 15:32] LABS: SQUAMOUS EPITHELIAL CELL URINE 0-5 /hpf (0-5); WBC, URINE 0-2 /hpf (0-5)
[2017-11-27 15:34] LABS: ALT (GPT) 37 U/L (10-53); AST (GOT) 16 U/L (15-37)
[2017-11-27 15:35] LABS: GLOMERULAR FILTRATION RATE 73 ML/MIN (>89)
[2017-11-27 15:36] LABS: TOTAL BILIRUBIN ADULT 0.3 MG/DL (0.2-1.0)
[2017-11-27 15:37] LABS: ALKALINE PHOSPHATASE 87 U/L (45-117)
[2017-11-27 16:15] VITALS: BP 117/62; PULSE 74; RESP 20; O2SAT 94
[2017-11-27] MEDS ORDERED: MORPHINE SULFATE 4 MG/ML INJ IV PUSH ONE (16:15)
[2017-11-27 17:27] VITALS: BP 128/75; PULSE 68; RESP 20; O2SAT 97
[2017-11-27] MEDS ORDERED: oxyCODONE/ACETAMINOPHEN 5 MG/325 MG TAB PO ONE (17:30)
[2017-12-02] MEDS ORDERED: NAPR500T2 PO (07:30)
[2017-12-02] MEDS ORDERED: ONDA4TAB7 SL (07:30)
[2017-12-02] MEDS ORDERED: PERC5TAB12 PO (07:30)
== END 2017-11-27 18:21 | disposition home or self-care (01) ==
LOC: PHED 13:36
DX: N20.0 Calculus of kidney (principal); R11.2 Nausea with vomiting, unspecified; I10 Essential (primary) hypertension; F32.9 Major depressive disorder, single episode, unspecified; F41.9 Anxiety disorder, unspecified; F17.210 Nicotine dependence, cigarettes, uncomplicated; Z87.442 Personal history of urinary calculi; Z88.2 Allergy status to sulfonamides; Z79.899 Other long term (current) drug therapy
CPT/HCPCS: 80053; 81001; 84703; 85025; 96361; 96365; 96375; 96376; 99284; J0696; J1885; J2270; J7030

== ENCOUNTER 2017-12-26 18:47 | Observation (INO) ==
[2017-12-26] MEDS ORDERED: Sod Chloride 0.9% Inj 2,000 ML IV.SIG ONE (21:23)
[2017-12-26] MEDS ORDERED: HYDROmorphone PF Inj 1 MG/ML Ampul IV.PUSH ONE (21:58)
--- NOTE | 2017-12-26 21:58 | ED ---
HPI General Chief Complaint: Abdominal Pain Stated Complaint: Flank pain,urinary complaint Time Seen by Provider: 12/26/17 21:10 Source: patient Mode of arrival: ambulatory Limitations: no limitations History of Present Illness HPI narrative: 32-year-old female returns to the emergency department [facility] for evaluation of left flank pain that started 4 weeks ago. Patient says that she went to [place] in [place] at that time and was diagnosed with kidney stones. She was advised to follow-up with an outpatient urologist and followed up with Dr. Tamez, urologist 3 weeks ago and advised to allow the stone to pass. Patient went to fax [place] last night for increased pain where she had a repeat CT. She states that the stone "had not moved". Today, she says the left flank pain has worsened and she has been unable to keep any medication down. She says the pain is severe, radiating from the left flank to the left groin, sharp. No palliative or provocative factors. Says she feels fullness in her lower pelvic region and she has not been able to urinate properly since the onset of the severe pain. She says that she has been trying to take medication that she was discharged with but again has been unable to keep anything down. She denies fevers or chills. MD complaint: abdominal pain and flank pain Pain Consistency: constant Location: L flank Severity: severe Quality: sharp Radiation: other Migration to: no migration Relieving factors: nothing Exacerbating factors: nothing Associated symptoms: nausea, vomiting and diarrhea (One episode of nonbloody diarrhea yesterday) Treatments prior to arrival: NSAIDs Related Data Home Medications Medication Instructions Recorded Confirmed duloxetine [Cymbalta] 60 mg PO DAILY 12/26/17 12/26/17 ibuprofen 800 mg PO TID PRN 12/26/17 12/26/17 Previous Rx's Medication Instructions Recorded ondansetron [Zofran ODT] 4 mg PO Q6-8H #10 tab 12/26/17 oxycodone-acetaminophen [Endocet] 1 tab PO Q4-6H #14 tab 12/26/17 tamsulosin [Flomax] 0.4 mg PO DAILY 30 Days #10 cap 12/27/17 Allergies Allergy/AdvReac Type Severity Reaction Status Date / Time Sulfa (Sulfonamide Allergy Intermediate HIVES Verified 12/26/17 02:38 Antibiotics) Review of Systems Except as stated in HPI: all other systems reviewed are negative PMFSH Surgical History Surgical History Hx of cholecystectomy (Acute) Social History Social History Substance History: No History of Abuse Second Hand Smoke Exposure: Yes Smoking Status: Current every day smoker Tobacco Type: Cigarettes How Often Do You Have a Drink Containing Alcohol: Monthly or less Recent Travel in [facility] within the Last 8 Weeks: No Recent Out of Country Travel within the Last 8 Weeks: No Immunization History Tetanus Immunization: <5 Years Tetanus Immunization Year if Known: 2014 Hx Influenza Vaccine This Season: No Exam Narrative Exam Narrative: GENERAL: Well-developed, well-nourished in moderate distress SKIN: Focused skin assessment warm/dry. HEAD: Atraumatic. Normocephalic. EYES: Pupils equal and round. No scleral icterus. No injection or drainage. ENT: No nasal bleeding or discharge. Mucous membranes pink and moist. NECK: Trachea midline. No JVD. CARDIOVASCULAR: Regular rate and rhythm. No murmur appreciated. RESPIRATORY: No accessory muscle use. Clear to auscultation. Breath sounds equal bilaterally. GASTROINTESTINAL: Abdomen soft, non-tender, nondistended. Hepatic and splenic margins not palpable. Mild tenderness palpation the left lower quadrant. No CVA tenderness MUSCULOSKELETAL: No obvious deformities. No clubbing. No cyanosis. No edema. NEUROLOGICAL: Awake and alert. No obvious cranial nerve deficits. Motor grossly within normal limits. Normal speech. PSYCHIATRIC: Appropriate mood and affect; insight and judgment normal. Course Initial Documented Vital Signs Temperature 98.4 F 12/26/17 18:53 Pulse Rate 79 12/26/17 18:53 Respiratory Rate 20 12/26/17 18:53 Blood Pressure 152/92 H 12/26/17 18:53 Pulse Oximetry 98 12/26/17 18:53 Last Documented Vital Signs Temperature 97.9 F 12/27/17 16:00 Pulse Rate 65 12/27/17 16:00 Respiratory Rate 20 12/27/17 16:00 Blood Pressure 131/76 12/27/17 16:00 Pulse Oximetry 97 12/27/17 16:00 Medical Decision Making MDM Narrative Medical decision making narrative: 32-year-old female presents emergency department for evaluation of a left flank pain that started 4 weeks ago. She states that she has been to [place] 2 times previously and was treated as an outpatient. Says last night the pain worsened she decided to go to the emergency department in [place] for further evaluation. Patient says that she was discharged with pain medication and nausea medication but is been unable to keep his medication down. Patient says she is also had decreased urination and feels a fullness in her lower pelvic region. Toradol, reglan, dilaudid administered. 2L NS administered. Nausea controlled with Reglan. Because patient has been to the emergency department multiple times for the same complaint and continues to have significant pain associated with nausea vomiting will admit patient for observation. Differential Diagnosis Differential Diagnosis: Pyelonephritis, nephrolithiasis, hydronephrosis Lab Data Result diagrams: 12/27/17 06:58 12/27/17 06:58 Lab Results 12/26/17 12/27/17 12/27/17 Range/Units 21:40 06:58 06:58 WBC 9.8 (4.0-11.0) th/mm3 RBC 4.24 (4.00-5.30) mil/mm3 Hgb 11.8 (11.6-15.3) gm/dL Hct 36.3 (35.0-46.0) % MCV 85.7 (80.0-100.0) fL MCH 27.9 (27.0-34.0) pg MCHC 32.6 (32.0-36.0) % RDW 13.5 (11.6-17.2) % Plt Count 262 (150-450) th/mm3 MPV 8.8 (7.0-11.0) fL Neut % (Auto) 66.7 (16.0-70.0) % Lymph % (Auto) 24.1 (9.0-44.0) % Bureau % (Auto) 5.1 (0.0-8.0) % Eos % (Auto) 3.3 (0.0-4.0) % Baso % (Auto) 0.8 (0.0-2.0) % Neut # (Auto) 6.6 (1.8-7.7) th/mm3 Lymph # (Auto) 2.4 (1.0-4.8) th/mm3 Bureau # (Auto) 0.5 (0.0-0.9) th/mm3 Eos # (Auto) 0.3 (0.0-0.4) th/mm3 Baso # (Auto) 0.1 (0.0-0.2) th/mm3 WBC Differential . Differential Comment Auto diff final Sodium 142 144 (136-145) meq/L Potassium 4.2 3.7 (3.5-5.1) meq/L Chloride 109 H 112 H (98-107) meq/L Carbon Dioxide 25.7 26.1 (21.0-32.0) meq/L Anion Gap 7 6 (5-15) meq/L BUN 15 12 (7-18) mg/dL Creatinine 1.34 H 0.89 (0.50-1.00) mg/dL Estimated GFR 46 L 74 L (>89) mL/min Random Glucose 95 79 (74-106) mg/dL Calcium 8.5 7.6 L D (8.5-10.1) mg/dL Total Bilirubin 0.8 (0.2-1.0) mg/dL AST 17 (15-37) U/L ALT 36 (10-53) U/L Alkaline Phosphatase 71 (45-117) U/L Total Protein 6.1 L (6.4-8.2) g/dL Albumin 3.3 L (3.4-5.0) g/dL Urine Color (Yellw/Straw) Urine Clarity (Clear) Urine pH (5.0-8.5) Ur Specific [place] (1.002-1.035) Urine Protein (Neg-Trace) mg/dL Urine Glucose (UA) (Negative) mg/dL Urine Ketones (Negative) mg/dL Urine Occult Blood (Negative) Urine Nitrate (Negative) Urine Bilirubin (Negative) Urine Urobilinogen (Less than 2) mg/dL Ur Leukocyte Esterase (Negative) Urine RBC (0-3) /hpf Urine WBC (0-5) /hpf Ur Squamous Epith Cells (0-5) /hpf Urine Bacteria (None) /hpf Urine Mucus (Occasional) /lpf Micro UA Comment Urine Culture Comments 12/27/17 Range/Units 13:26 WBC (4.0-11.0) th/mm3 RBC (4.00-5.30) mil/mm3 Hgb (11.6-15.3) gm/dL Hct (35.0-46.0) % MCV (80.0-100.0) fL MCH (27.0-34.0) pg MCHC (32.0-36.0) % RDW (11.6-17.2) % Plt Count (150-450) th/mm3 MPV (7.0-11.0) fL Neut % (Auto) (16.0-70.0) % Lymph % (Auto) (9.0-44.0) % Bureau % (Auto) (0.0-8.0) % Eos % (Auto) (0.0-4.0) % Baso % (Auto) (0.0-2.0) % Neut # (Auto) (1.8-7.7) th/mm3 Lymph # (Auto) (1.0-4.8) th/mm3 Bureau # (Auto) (0.0-0.9) th/mm3 Eos # (Auto) (0.0-0.4) th/mm3 Baso # (Auto) (0.0-0.2) th/mm3 WBC Differential Differential Comment Sodium (136-145) meq/L Potassium (3.5-5.1) meq/L Chloride (98-107) meq/L Carbon Dioxide (21.0-32.0) meq/L Anion Gap (5-15) meq/L BUN (7-18) mg/dL Creatinine (0.50-1.00) mg/dL Estimated GFR (>89) mL/min Random Glucose (74-106) mg/dL Calcium (8.5-10.1) mg/dL Total Bilirubin (0.2-1.0) mg/dL AST (15-37) U/L ALT (10-53) U/L Alkaline Phosphatase (45-117) U/L Total Protein (6.4-8.2) g/dL Albumin (3.4-5.0) g/dL Urine Color Yellow (Yellw/Straw) Urine Clarity Hazy H (Clear) Urine pH 6.0 (5.0-8.5) Ur Specific [place] 1.014 (1.002-1.035) Urine Protein Negative (Neg-Trace) mg/dL Urine Glucose (UA) Negative (Negative) mg/dL Urine Ketones Negative (Negative) mg/dL Urine Occult Blood Moderate H (Negative) Urine Nitrate Negative (Negative) Urine Bilirubin Negative (Negative) Urine Urobilinogen Less than 2 (Less than 2) mg/dL Ur Leukocyte Esterase Negative (Negative) Urine RBC 5 H (0-3) /hpf Urine WBC 5 (0-5) /hpf Ur Squamous Epith Cells 2 (0-5) /hpf Urine Bacteria Occasional H (None) /hpf Urine Mucus Few H (Occasional) /lpf Micro UA Comment Culture not ind Urine Culture Comments Culture not ind Discharge Plan Discharge Disposition Patient Disposition: 30 Still Patient Discharge Condition Condition: Stable Discharge Details Diagnosis: Nephrolithiasis, Nausea & vomiting Physicians Team ED Provider: Bernabe Mitchell ED Midlevel Provider: Sharyn Hampton Primary Care Provider: Primary Care Malou Mack Attending Provider: Pavan Moran Other Providers: Alan Huynh Status ED Status: Left Department Discharge Information Discharge Date/Time: 12/27/17 00:10
[2017-12-26] MEDS ORDERED: HYDROmorphone PF Inj 2 MG/ML Vial IV.PUSH ONE (22:30)
[2017-12-26 22:32] LABS: Calcium 8.5 mg/dL (8.5-10.1); Carbon Dioxide 25.7 meq/L (21.0-32.0); Potassium 4.2 meq/L (3.5-5.1)
[2017-12-26] MEDS ORDERED: Bisacodyl 10 MG Supp RECTAL PRN (23:53)
[2017-12-26] MEDS ORDERED: Acetaminophen 325 MG Tablet PO PRN (23:53)
[2017-12-26] MEDS ORDERED: Temazepam 15 MG Capsule PO PRN (23:53)
--- NOTE | 2017-12-26 23:55 | P.HPIM ---
History of Present Illness Primary Care Physician: No Primary Care Physician History of Present Illness: This is a 32-year-old female with a PMH of Renal Stones who presented to ER with complaints of left flank pain. Patient has had multiple ER presentations since 11/26/17 for c/o left flank pain, CT Abd/Pelvis 11/26/17 w/ 3mm Left UPJ stone without hydronephrosis, was d/c'd from ER w/ outpatient follow up w/ Urology. States she was seen by Dr. Kerr approx 3wks ago and was given Rx for Flomax, however she's been unable to afford it. Seen in ER again on 11/27, and 12/26/[address] Abd/Pelvis 12/26/17 w/ 3mm Left UPJ stone again seen, no hydronephrosis. Was d/c'd from [place] ER this morning w/ Flomax, Zofran and Endocet w/ some improvement, however today states she's had worsening left flank pain and multiple episodes of nausea/vomiting, unable to take medications. Denies fever or chills. BP 152/92, HR 79, O2 sat 98% on RA, Afebrile. Creatinine 1.34, previously 0.96 on 11/26/2017 . - Diagnosis (1) Intractable nausea and vomiting (2) Renal stone (3) ZHANNA (acute kidney injury) Review of Systems All other systems reviewed negative except as stated in HPI [facility] - History History Provided By: Patient - Medical History Medical History: Medical History (Last Reviewed 12/26/17 @ 03:28 by Karime Noland) Abdominal hernia Anxiety Depression Kidney stones - Surgical History Surgical History: Surgical History (Last Updated 12/26/17 @ 02:22 by Riddhi Madden RN) Hx of cholecystectomy - Tobacco History Second Hand Smoke Exposure: Yes Tobacco Use In Past 30 Days: Yes Smoking Status: Current every day smoker Tobacco Type: Cigarettes - Alcohol History How Often Do You Have a Drink Containing Alcohol: Monthly or less - Substance Use History Substance History: No History of Abuse - Travel History Recent Travel in the [place] Within the Last 8 Weeks: No Recent Travel Out of the Country Within the Last 8 Weeks: No - Immunization History Tetanus Immunization: <5 Years Tetanus Immunization Year if Known: 2014 Hx Influenza Vaccine This Season: No Medications and Allergies Allergies Allergy/AdvReac Type Severity Reaction Status Date / Time Sulfa (Sulfonamide Allergy Intermediate HIVES Verified 12/26/17 02:38 Antibiotics) Home Medications Medication Instructions Recorded Confirmed Type duloxetine [Cymbalta] 60 mg PO DAILY 12/26/17 12/26/17 History ibuprofen 800 mg PO TID PRN 12/26/17 12/26/17 History Exam Vital signs: Vital Signs 12/26/17 18:53 12/26/17 21:57 Temperature 98.4 F Pulse Rate 79 90 Respiratory Rate 20 16 Blood Pressure 152/92 H 141/72 H Pulse Oximetry 98 98 Intake & Output 12/26/17 12/26/17 12/27/17 06:59 18:59 06:59 Weight 142.882 kg Narrative: PE: GENERAL: Young white female in mild distress due to pain. HEENT: PERRLA, EOMI. No scleral icterus or conjunctival pallor. No lid lag or facial droop. CARDIOVASCULAR: Regular rate and rhythm. No obvious murmurs to auscultation. No chest tenderness to palpation. RESPIRATORY: No obvious rhonchi or wheezing. Clear to auscultation. Breath sounds equal bilaterally. GASTROINTESTINAL: Abdomen soft, non-tender, nondistended. BS normal. Left flank tenderness to palpation MUSCULOSKELETAL: Extremities without clubbing, cyanosis, or edema. No obvious deformities. NEUROLOGICAL: Awake, alert and oriented x4. No focal neurologic deficits. Moving both upper and lower extremities spontaneously. Results - Labs CBC & Chem 7: 12/26/17 21:40 Labs: BMP 12/26/17 21:40 Sodium 142 Potassium 4.2 Chloride 109 H Carbon Dioxide 25.7 BUN 15 Creatinine 1.34 H Calcium 8.5 Caprini VTE Risk Assessment Caprini VTE Risk Assessment: No/Low Risk (score <= 1) Caprini Risk Assessment Model: Point Value = 1 Point Value = 2 Point Value = 3 Point Value = 5 Age 41-60 Minor surgery BMI > 25 kg/m2 Swollen legs Varicose veins or History of unexplained or recurrent spontaneous Oral contraceptives or hormone replacement Sepsis (< 1 month) Serious lung disease, including pneumonia (< 1 month) Abnormal pulmonary function Acute myocardial infarction Congestive heart failure (< 1 month) History of inflammatory bowel disease Medical patient at bed rest Age 61-74 Arthroscopic surgery Major open surgery (> 45 min) Laparoscopic surgery (> 45 min) Malignancy Confined to bed (> 72 hours) Immobilizing plaster cast Central venous access Age >= 75 History of VTE Family history of VTE Factor V Leiden Prothrombin [id number] Lupus anticoagulant Anticardiolipin antibodies Elevated serum homocysteine Heparin-induced thrombocytopenia Other congenital or acquired thrombophilia Stroke (< 1 month) Elective arthroplasty Hip, pelvis, or leg fracture Acute spinal cord injury (< 1 month) Prophylaxis Regimen: Total Risk Factor Score Risk Level Prophylaxis Regimen 0-1 Low Early ambulation 2 Moderate Order ONE of the following: *Sequential Compression Device (SCD) *Heparin 5000 units SQ BID 3-4 Higher Order ONE of the following medications: *Heparin 5000 units SQ TID *Enoxaparin/Lovenox 40 mg SQ daily (WT < 150 kg, CrCl > 30 mL/min) *Enoxaparin/Lovenox 30 mg SQ daily (WT < 150 kg, CrCl > 10-29 mL/min) *Enoxaparin/Lovenox 30 mg SQ BID (WT < 150 kg, CrCl > 30 mL/min) AND/OR *Sequential Compression Device (SCD) 5 or more Highest Order ONE of the following medications: *Heparin 5000 units SQ TID (Preferred with Epidurals) *Enoxaparin/Lovenox 40 mg SQ daily (WT < 150 kg, CrCl > 30 mL/min) *Enoxaparin/Lovenox 30 mg SQ daily (WT < 150 kg, CrCl > 10-29 mL/min) *Enoxaparin/Lovenox 30 mg SQ BID (WT < 150 kg, CrCl > 30 mL/min) AND *Sequential Compression Device (SCD) Assessment and Plan - Assessment (1) Intractable nausea and vomiting Code(s): R11.2 - Nausea with vomiting, unspecified Status: Acute (2) Renal stone Code(s): N20.0 - Calculus of kidney Status: Acute (3) ZHANNA (acute kidney injury) Code(s): N17.9 - Acute kidney failure, unspecified Status: Acute - Plan A/P: 1. Intractable NV/Pain: ongoing left-sided flank pain unrelieved by home medications, now unable to take PO due to multiple episodes of nausea/vomiting. IVF for hydration, Compazine/Zofran prn, analgesics as needed. 2. Renal Stone: H/o Renal Stone, multiple ER presentations for c/o left flank pain, CT 11/26/17 w/ 3mm left UPJ stone, seen by Dr. Kerr 3wks ago and given Rx for Flomax however unable to afford it. Seen in ER 11/27, 12/02 and again for ongoing c/o pain. Will consult Urology for further eval/recommendations , Flomax, analgesics, IVF. 3. ZHANNA: Creatinine 1.43, previously normal on 11/26/17, IVF for hydration, monitor I/O. 4. DVT Prophylaxis: SCD/Teds 5. Social work for d/c planning as needed 6. Case discussed w/ ER physician at length, labs/records/imaging reviewed by me.
[2017-12-27] MEDS: HYDROmorphone PF Inj 2 MG/ML Vial IV.PUSH PRN ×6 (00:41→22:37)
[2017-12-27] MEDS: Sod Chloride 0.9% Inj 1,000 ML IV.CONT SCH ×4 (01:50→22:37)
[2017-12-27 07:31] LABS: Baso # (Auto) 0.1 th/mm3 (0.0-0.2); Baso % (Auto) 0.8 % (0.0-2.0); Eos # (Auto) 0.3 th/mm3 (0.0-0.4); Eos % (Auto) 3.3 % (0.0-4.0); Hematocrit 36.3 % (35.0-46.0); Hemoglobin 11.8 gm/dL (11.6-15.3); Lymph # (Auto) 2.4 th/mm3 (1.0-4.8); Lymph % (Auto) 24.1 % (9.0-44.0); Mean Corpuscular HGB Conc 32.6 % (32.0-36.0); Mean Corpuscular Hemoglobin 27.9 pg (27.0-34.0); Mean Corpuscular Volume 85.7 fL (80.0-100.0); Mean Platelet Volume 8.8 fL (7.0-11.0); Mono # (Auto) 0.5 th/mm3 (0.0-0.9); Mono % (Auto) 5.1 % (0.0-8.0); Neut # (Auto) 6.6 th/mm3 (1.8-7.7); Neut % (Auto) 66.7 % (16.0-70.0); Platelet Count 262 th/mm3 (150-450); Red Blood Count 4.24 mil/mm3 (4.00-5.30); Red Cell Distribution Width 13.5 % (11.6-17.2); White Blood Count 9.8 th/mm3 (4.0-11.0)
[2017-12-27 07:47] LABS: Alanine Aminotransferase 36 U/L (10-53); Albumin 3.3 g/dL (3.4-5.0); Alkaline Phosphatase 71 U/L (45-117); Anion Gap 6 meq/L (5-15); Aspartate Aminotransferase 17 U/L (15-37); Blood Urea Nitrogen 12 mg/dL (7-18); Calcium 7.6 mg/dL (8.5-10.1); Carbon Dioxide 26.1 meq/L (21.0-32.0); Chloride 112 meq/L (98-107); Glomerular Filtration Rate 74 mL/min (>89); Glucose,Random 79 mg/dL (74-106); Potassium 3.7 meq/L (3.5-5.1); Sodium 144 meq/L (136-145); Total Protein 6.1 g/dL (6.4-8.2)
[2017-12-27] MEDS: Senna/Docusate Sodium 8.6/50 MG Tablet PO SCH ×2 (08:55→22:14)
--- NOTE | 2017-12-27 09:57 | P.PN ---
Subjective Interval history: Follow-up visit nephrolithiasis, intractable pain. Patient seen and examined today. States she continues to have left flank pain but it has significantly improve when she was given the pain medications. Denies any nausea, vomiting, diarrhea. N.p.o. after now. Has not been seen by urologist. Denies SOB/ dyspnea. Denies chest pain, palpitations, headaches, dizziness. Denies fevers, chills. Physical Exam Vital signs: Vital Signs 12/26/17 18:53 12/26/17 21:57 12/27/17 00:26 Temperature 98.4 F 98.1 F Pulse Rate 79 90 59 L Respiratory Rate 20 16 20 Blood Pressure 152/92 H 141/72 H 158/86 H Pulse Oximetry 98 98 98 12/27/17 01:48 12/27/17 02:41 12/27/17 08:00 Temperature 98.2 F 97.7 F Pulse Rate 67 56 L Respiratory Rate 16 20 20 Blood Pressure 123/76 117/68 Pulse Oximetry 96 96 Intake & Output 12/26/17 12/27/17 12/27/17 18:59 06:59 18:59 Intake Total 1999 Balance 1999 Weight 142.882 kg Intake: IV 1999 NS Inj 2,000 ML @ Wide Open IV. 1999 SIG BOLUS ONE Rx#:[id number] Other: # Voids 2 Date of Last Bowel Movement 12/26/17 Narrative: GENERAL: This is an obese, well-developed patient, in no apparent distress. SKIN: Warm and dry HEENT: Normocephalic. Pupils equal round. Nose without bleeding. Airway patent. NECK: Trachea midline. CARDIOVASCULAR: Regular rate and rhythm without murmurs, gallops, or rubs. RESPIRATORY: Clear to auscultation. Breath sounds equal bilaterally. No wheezes , rales, or rhonchi. GASTROINTESTINAL: Abdomen soft, obese. Bowel Sounds normoactive x4. Mild tenderness left abdominal side, towards the flank area. MUSCULOSKELETAL: Extremities without clubbing, cyanosis, or edema. NEUROLOGICAL: Awake and alert. Oriented to time, place, person. No focal neuro deficit. Moves all extremities. Normal speech. Results - Labs CBC & Chem 7: 12/27/17 06:58 12/27/17 06:58 Laboratory Results - last 24 hr 07/12/27/17 12/27/17 21:40 06:58 06:58 WBC 9.8 RBC 4.24 Hgb 11.8 Hct 36.3 MCV 85.7 MCH 27.9 MCHC 32.6 RDW 13.5 Plt Count 262 MPV 8.8 Neut % (Auto) 66.7 Lymph % (Auto) 24.1 Coffey % (Auto) 5.1 Eos % (Auto) 3.3 Baso % (Auto) 0.8 Neut # (Auto) 6.6 Lymph # (Auto) 2.4 Coffey # (Auto) 0.5 Eos # (Auto) 0.3 Baso # (Auto) 0.1 WBC Differential . Differential Comment Auto diff final Sodium 142 144 Potassium 4.2 3.7 Chloride 109 H 112 H Carbon Dioxide 25.7 26.1 Anion Gap 7 6 BUN 15 12 Creatinine 1.34 H 0.89 Estimated GFR 46 L 74 L Random Glucose 95 79 Calcium 8.5 7.6 L D Total Bilirubin 0.8 AST 17 ALT 36 Alkaline Phosphatase 71 Total Protein 6.1 L Albumin 3.3 L Assessment and Plan - Assessment (1) Intractable nausea and vomiting Code(s): R11.2 - Nausea with vomiting, unspecified Status: Acute (2) Renal stone Code(s): N20.0 - Calculus of kidney Status: Acute (3) ZHANNA (acute kidney injury) Code(s): N17.9 - Acute kidney failure, unspecified Status: Acute - Plan 32-year-old female with a PMH of Renal Stones who presented to ER with complaints of left flank pain. 1. Intractable NV/Pain: ongoing left-sided flank pain unrelieved by home medications -now unable to take PO due to multiple episodes of nausea/vomiting. IVF for hydration, Compazine/Zofran prn, analgesics as needed. Renal Stone: H/o Renal Stone, multiple ER presentations for c/o left flank pain , CT 11/26/17 w/ 3mm left UPJ stone -Previously seen by Dr. Kerr 3wks ago and given Rx for Flomax however unable to afford it. -She was seen in ER 11/27, 12/02 and again 12/26 for ongoing c/o pain. -Consult Urology for further eval/recommendations -12/26/17 CT Abd Pelvis showed Bilateral renal calculi again seen. 3 mm left UPJ calculus again seen. No evidence for hydronephrosis. -Flomax, analgesics, IVF. ZHANNA: Creatinine 1.43, previously normal on 11/26/17 -IVF for hydration, monitor I/O. 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 -Financial assistance phone number, set up appointment -discussed with patient DVT Prophylaxis: SCD/Teds Code Status: Full Code Discussed Condition With: Patient, nursing Discharge Planning: DC tomorrow
[2017-12-27 13:50] LABS: Bacteria,Urine Occasional /hpf; Bilirubin,Urine Negative (Negative); Clarity,Urine Hazy (Clear); Color,Urine Yellow (Yellw/Straw); Glucose,Urine (UA) Negative (Negative); Leukocyte Esterase,Urine Negative (Negative); Mucus,Urine Few /lpf (Occasional); Nitrite,Urine Negative (Negative); Specific Gravity,Urine 1.014 (1.002-1.035); Squamous Epithelial Cell,Urine 2 /hpf (0-5)
--- NOTE | 2017-12-27 16:40 | MB ---
cc: Alan Huynh DO DATE: 12/27/2017 HISTORY OF PRESENT ILLNESS: Ms. Mares is a 32-year-old obese female with a history of nephrolithiasis in the past, who presents with left-sided flank pain. CT scan from 12/26/2017 demonstrates a 3 mm proximal left ureteral calculus without any evidence of stranding or hydronephrosis. The patient reports that she has a history of calcium oxalate stones and attempts to follow the diet, but she is not always successful. She was seen earlier in the ER by Dr. Kerr in the past and conservative measures were followed at that time. She has been having nausea and vomiting and has been unable to eat for the last few days she states. PAST MEDICAL HISTORY: Includes nephrolithiasis. PAST SURGICAL HISTORY: Noted for cholecystectomy as well as lithotripsy in the past. SOCIAL HISTORY: She denies any history of substance abuse. She does smoke daily. She occasionally drinks. FAMILY HISTORY: Negative for nephrolithiasis. REVIEW OF SYSTEMS: Nausea, vomiting, abdominal pain, left-sided flank pain. Denies gait disturbance, bleeding disorders. Denies chest pain, headaches, vision problems, skin lesions. The remaining review of systems were reviewed and were negative. PHYSICAL EXAMINATION: VITAL SIGNS: Temperature 97.8, heart rate 80, respiratory rate 20, blood pressure is 133/72, 96% on room air. GENERAL: She is an obese 32-year-old female in no acute distress. HEENT: Normocephalic, atraumatic. Pupils equal, round, regular and reactive to light. Extraocular movements intact. NECK: Supple. HEART: Regular rate and rhythm. LUNGS: Clear. ABDOMEN: Soft, nontender, nondistended. BACK: There is mild left CVA tenderness. EXTREMITIES: Show no evidence of cyanosis, clubbing, or edema. NEUROLOGIC: Cranial nerves 2-12 are intact. LABORATORY DATA: White count 9.8, hemoglobin 11.8, hematocrit 36.3, platelet count of 262. Sodium 144, potassium 3.7, chloride 112, CO2 of 26.1, BUN of 12, creatinine 0.89, glucose of 79. Urinalysis shows 5 white cells and 5 red cells, occasional bacteria. Nitrite is negative. IMAGING STUDIES: Show a 3 mm proximal left ureteral calculus without evidence of stranding or hydronephrosis. A small stone is also noted in the right kidney which is nonobstructing. ASSESSMENT AND PLAN: This is a 32-year-old female with intractable pain with a small 3 mm stone without evidence of hydronephrosis. Would continue with IV hydration. We will increase IV fluid rate to 150 an hour. Pain management. No intervention at this time. No evidence of hydronephrosis or evidence of obstruction. Recommend followup in the office in a few weeks. Thank you for the consultation. DO TOMEKA Stern/RENETTA , 02:49 PM , 04:38 PM
[2017-12-28 04:33] VITALS: PULSE 68
[2017-12-28] MEDS: Sod Chloride 0.9% Inj 1,000 ML IV.CONT SCH (06:51)
--- NOTE | 2017-12-28 07:54 | P.PNURO ---
Subjective Patient symptoms today: Pt sleeping. Per report pt still in some pain. On PO pain medication Objective Vital Signs: Vital Signs 12/27/17 08:00 12/27/17 12:00 12/27/17 16:00 Temperature 97.7 F 97.8 F 97.9 F Pulse Rate 56 L 60 65 Respiratory Rate 20 20 20 Blood Pressure 117/68 133/72 131/76 Pulse Oximetry 96 96 97 12/27/17 20:00 12/28/17 00:00 12/28/17 00:29 Temperature 98.8 F 98.0 F Pulse Rate 63 77 Respiratory Rate 17 16 16 Blood Pressure 142/85 H 130/84 Pulse Oximetry 99 95 12/28/17 04:00 Temperature 98.2 F Pulse Rate 68 Respiratory Rate 16 Blood Pressure 139/85 Pulse Oximetry 95 Intake & Output 12/27/17 12/28/17 12/28/17 18:59 06:59 18:59 Intake Total 1999 Output Total 950 / 950 Balance 1050 / 1050 1999 Intake: IV 1999 NS Inj 1,000 ML @ 150 mls/hr IV 1999 .CONT .Q6H40M [facility] Rx#:[id number] NS Inj 2,000 ML @ Wide Open IV. 1999 SIG BOLUS ONE Rx#:[id number] Output: Urine 950 / 950 Other: # Voids 7 Date of Last Bowel Movement 12/26/17 12/28/17 Result Diagrams: 12/27/17 06:58 12/27/17 06:58 Medications and IVs: Active Medications Generic Name Dose Route Start Last Admin Trade Name Freq PRN Reason Stop Dose Admin Acetaminophen 650 mg 12/26/17 23:53 Tylenol PO Q4H PRN Temp > 100.4 Hydrocodone Bitart/Acetaminophen 1 tab 12/27/17 11:36 [place] 7.5/325 PO Q4H PRN Pain 4-6 Hydrocodone Bitart/Acetaminophen 1 tab 12/27/17 11:36 12/28/17 00:29 [place] 10/325 PO 1 tab Q4H PRN Administration Pain 7-10 Al Hydroxide/Mg Hydroxide 30 ml 12/26/17 23:53 Milk Of Magnesia Liq PO Q12H PRN Mild Constipation Bisacodyl 10 mg 12/26/17 23:53 Dulcolax Supp RECTAL DAILY PRN SEVERE CONSITIPATION Hydromorphone HCl 1 mg 12/26/17 23:53 12/27/17 22:37 Dilaudid Pf Inj IV.PUSH 1 mg Q4H PRN Administration BREAKTHROUGH PAIN Sodium Chloride 1,000 mls @ 150 mls/hr 12/27/17 14:45 12/28/17 06:51 Ns Inj IV.CONT 150 mls/hr .Q6H40M [facility] Administration Lactulose 30 ml 12/26/17 23:53 Lactulose Liq PO DAILY PRN SEVERE CONSITIPATION Ondansetron HCl 4 mg 12/26/17 23:53 12/27/17 18:16 Zofran Odt PO 4 mg Q6H PRN Administration NAUSEA OR VOMITING Prochlorperazine Edisylate 10 mg 12/26/17 23:52 12/27/17 22:25 Compazine Inj IV.PUSH 10 mg Q6H PRN Administration NAUSEA/VOMITING Senna/Docusate Sodium 1 tab 12/27/17 09:00 12/27/17 22:14 Razia-Colace PO 1 tab BID [facility] Administration Sennosides 17.2 mg 12/26/17 23:53 Senokot PO Q12H PRN Moderate Constipation Tamsulosin HCl 0.4 mg 12/27/17 09:00 12/27/17 08:55 Flomax PO 0.4 mg DAILY [facility] Administration Temazepam 15 mg 12/26/17 23:53 Restoril PO HS PRN INSOMNIA Objective Remarks: Abd:soft,nt,nd Assessment and Plan - Plan 32 y.o female with 3mm left ureteral stone without hydronephrosis No intervention required at this time F/U as outpt.
--- NOTE | 2017-12-28 07:58 | P.DS ---
Date of admission: 12/26/17 23:28 Primary care physician: No Primary Care Physician Attending physician on discharge: Pavan Moran Anticipated date of discharge: 12/28/17 Brief History from admission: This is a 32-year-old female with a PMH of Renal Stones who presented to ER with complaints of left flank pain. Patient has had multiple ER presentations since 11/26/17 for c/o left flank pain, CT Abd/Pelvis 11/26/17 w/ 3mm Left UPJ stone without hydronephrosis, was d/c'd from ER w/ outpatient follow up w/ Urology. States she was seen by Dr. Usha benson 3wks ago and was given Rx for Flomax, however she's been unable to afford it. Seen in ER again on 11/27, and 12/26/[address] Abd/Pelvis 12/26/17 w/ 3mm Left UPJ stone again seen, no hydronephrosis. Was d/c'd from [place] ER this morning w/ Flomax, Zofran and Endocet w/ some improvement, however today states she's had worsening left flank pain and multiple episodes of nausea/vomiting, unable to take medications. Denies fever or chills. BP 152/92, HR 79, O2 sat 98% on RA, Afebrile. Creatinine 1.34, previously 0.96 on 11/26/2017 . DS: Diagnosis - Discharge Diagnosis (1) Intractable nausea and vomiting Status: Acute (2) Renal stone Status: Acute (3) ZHANNA (acute kidney injury) Status: Acute DS: Medications - Discharge Medications Prescriptions: baclofen 10 mg PO TID PRN #15 tab PRN Reason: Muscle Spasm naproxen [Naprosyn] 500 mg PO BID #10 tab tamsulosin [Flomax] 0.4 mg PO DAILY 30 Days #10 cap DS: Summary Hospital Course: 2-year-old female with a PMH of Renal Stones who presented to ER with complaints of left flank pain. She had H/o Renal Stone, multiple ER presentations for c/o left flank pain, CT 11/26/17 w/ 3mm left UPJ stone. Previously seen by Dr. Kerr 3wks ago and given Rx for Flomax however unable to afford it. She was seen in ER 11/27, 12/02 and again 12/26 for ongoing c/o pain. 12/26/17 CT Abd Pelvis showed Bilateral renal calculi again seen. 3 mm left UPJ calculus again seen. No evidence for hydronephrosis. Patient was treated with IV fluids and analgesics for her pain. She was seen by Dr. Huynh that has evaluated her. No further neurological interventions for now. She will follow-up in the outpatient. Initially her creatinine was 1.43 but has improved with IV fluid hydration to 0.89. Patient will be discharged home with baclofen, Flomax that has been filled for her for 30 days, Naprosyn. Discussed with patient follow-up with financial assistance. Referred to [facility]. She is able to void spontaneously. No nausea vomiting. Pain is manageable. Patient has met maximal benefits of hospitalization. Clinically stable for discharge. - Time Spent with Patient Total time spent providing and/or coordinating discharge services: Less than 30 minutes - Quality: VTE Deep Vein Thrombosis/Pulmonary Embolism Present on Admission: No Exam Vital signs: Vital Signs 12/27/17 08:00 12/27/17 12:00 12/27/17 16:00 Temperature 97.7 F 97.8 F 97.9 F Pulse Rate 56 L 60 65 Respiratory Rate 20 20 20 Blood Pressure 117/68 133/72 131/76 Pulse Oximetry 96 96 97 12/27/17 20:00 12/28/17 00:00 12/28/17 00:29 Temperature 98.8 F 98.0 F Pulse Rate 63 77 Respiratory Rate 17 16 16 Blood Pressure 142/85 H 130/84 Pulse Oximetry 99 95 12/28/17 04:00 Temperature 98.2 F Pulse Rate 68 Respiratory Rate 16 Blood Pressure 139/85 Pulse Oximetry 95 Intake & Output 12/27/17 12/28/17 12/28/17 18:59 06:59 18:59 Intake Total 1999 Output Total 950 / 950 Balance 1050 / 1050 1999 Intake: IV 1999 NS Inj 1,000 ML @ 150 mls/hr IV 1999 .CONT .Q6H40M [facility] Rx#:[id number] NS Inj 2,000 ML @ Wide Open IV. 1999 SIG BOLUS ONE Rx#:[id number] Output: Urine 950 / 950 Other: # Voids 7 Date of Last Bowel Movement 12/26/17 12/28/17 Narrative: GENERAL: This is an obese, well-developed patient, in no apparent distress. SKIN: Warm and dry HEENT: Normocephalic. Pupils equal round. Nose without bleeding. Airway patent. NECK: Trachea midline. CARDIOVASCULAR: Regular rate and rhythm without murmurs, gallops, or rubs. RESPIRATORY: Clear to auscultation. Breath sounds equal bilaterally. No wheezes , rales, or rhonchi. GASTROINTESTINAL: Abdomen soft, obese. Bowel Sounds normoactive x4. Very Minimal tenderness left abdominal side, towards the flank area. MUSCULOSKELETAL: Extremities without clubbing, cyanosis, or edema. NEUROLOGICAL: Awake and alert. Oriented to time, place, person. No focal neuro deficit. Moves all extremities. Normal speech. Results Procedures completed during hospitalization: None Labs on day of discharge: Labs from last 24 hours 12/27/17 13:26 Urine Color Yellow Urine Clarity Hazy H Urine pH 6.0 Ur Specific Eleele 1.014 Urine Protein Negative Urine Glucose (UA) Negative Urine Ketones Negative Urine Occult Blood Moderate H Urine Nitrate Negative Urine Bilirubin Negative Urine Urobilinogen Less than 2 Ur Leukocyte Esterase Negative Urine RBC 5 H Urine WBC 5 Ur Squamous Epith Cells 2 Urine Bacteria Occasional H Urine Mucus Few H Micro UA Comment Culture not ind Urine Culture Comments Culture not ind Discharge Plan - Discharge Disposition Patient Disposition: 01 Discharge Home - Discharge Condition Condition: Stable - Discharge Order Discharge Orders: Discharge Order (Routine); Ordered 12/28/17 Ordered By: Chester Leonardo Urology Clear for Discharge (Routine); Ordered 12/28/17 Ordered By: Alan Huynh - Physicians Team Primary Care Provider: Primary Care Physici,No Attending Provider: Pavan Moran Other Providers: Alan Huynh DO
[2017-12-28 08:03] VITALS: RESP 17
[2017-12-28] MEDS: Senna/Docusate Sodium 8.6/50 MG Tablet PO SCH (08:24)
[2017-12-28 08:48] VITALS: BP 145/70; TEMP 97.6; O2SAT 96
== END 2017-12-28 11:19 | disposition home or self-care (01) ==
LOC: NEPC 18:47 → NEDA 18:47 → NEPHCDU 18:47
PROVIDERS: ADMIT Internal Medicine; ATTEND Internal Medicine